=== PATIENT | female | born 1965 | race Caucasian/White ===

== ENCOUNTER 2017-06-02 14:04 | Emergency (ER) | payer OTHER, SELFPAY ==
[2017-06-02 15:36] VITALS: BP 173/108; PULSE 65; RESP 18; TEMP 35.9; O2SAT 95; BMI 32.1
--- NOTE | 2017-06-02 15:45 | HMH.EDUTC ---
[facility] [place] Disposition Clinical Impression: Acute bronchitis Qualifiers: Bronchitis organism: other organism Qualified Code(s): J20.8 - Acute bronchitis due to other specified organisms Disposition: Home, Self-Care Condition on Discharge: Good Additional Instructions: inCrease fluids Tylenol or ibuprofen as needed for pain or fever Patient is diabetic we will hold steroids for now if symptoms continue follow-up with primary care If symptoms worsen or do not improve return or be seen in the ER Prescriptions: Azithromycin [Zithromax 250mg tab] 250 mg PO DIRECTED #6 tab Time of Disposition: 15:51 Medical Decision Making Vital Signs: 06/02/17 15:36 Temperature 96.6 F L Temperature Source Temporal Artery Scan Pulse Rate [Brachial] 65 Respiratory Rate 18 Blood Pressure [Right Arm] 173/108 Blood Pressure Mean [Right Arm] 129 Blood Pressure Source [Right Arm] Automatic Cuff Blood Pressure Position [Right Arm] Sitting 02 Sat by Pulse Oximetry 95 Oxygen Delivery Method Room Air - Colin Inquiry Pt receiving controlled substance: No [facility] HPI - General Chief complaint: Shortness of Breath/Dyspnea Stated complaint: congested Time Seen by Provider: 06/02/17 15:45 Mode of Arrival: Ambulatory Source of Information: Patient Limitations: No Limitations Description of Symptoms (Recalled from Triage Doc. by RN): FLU LAST MOGHT. STILL HAS CONGESTON AND COUGH WITH EARS POPPING. BP IS ELEVATED TODAY AND PT STATES SHE JUST DIDNT TAKE HER MEDS HEENT Symptoms (Recalled from RN notes): Yes Resp Symptoms (Recalled from RN notes): Yes Skin Symptoms (Recalled from RN notes): No MS Symptoms (Recalled from RN notes): No Functional Status (Recalled from RN notes): NA - History of Present Illness Provider Complaint: 51-year-old female presents today for coughing, chest congestion, and hoarseness. Patient states last month she was diagnosed with the flu and since then has had increasing congestion and feels like she might have pneumonia. - Related Data Home Medications Medication Instructions Recorded Confirmed levothyroxine 25 mcg capsule 25 mcg PO ONCE cap 05/07/17 lisinopril 20 1 tab PO BID 05/07/17 mg-hydrochlorothiazide 12.5 mg tablet metformin 1,000 mg tablet 1,000 mg PO ONCE tab 05/07/17 Previous Rx's Medication Instructions Recorded Azithromycin [Zithromax 250mg 250 mg PO DIRECTED #6 tab 06/02/17 tab] Allergies Allergy/AdvReac Type Severity Reaction Status Date / Time No Known Allergies Allergy Unverified 05/07/17 16:45 - Worker's Comp Is this a Worker's Comp case?: No [facility] History I have reviewed the patient's past medical history: Yes Medical History: Reports:: Diabetes Mellitus Type 2, Hypertension Other Medical History: Reports: Hypothyroidism Other Surgeries: Yes: Tubal Ligation Comment: Hemroidectomy - Social History Smoking Status: Current every day smoker Tobacco Type: cigarettes # Packs/Day (cigarettes): 1 Alcohol Intake: never - Psychiatric History Expresses thoughts of harming self/others: None Suicide Plan Description: No Plan Family Hx:: Heart Attack, Diabetes, Hypertension ROS Obtained: Yes All systems reviewed & no additional complaints - Constitutional Constitutional: Reports system reviewed and no additional complaints, except as docu, Denies chills, Denies fever(s), Reports weakness - Eyes Eyes: Reports system reviewed and no additional complaints, except as docu - ENT Ears, Nose, Mouth, and Throat: Reports system reviewed and no additional complaints, except as docu, Reports nasal congestion - Cardiovascular Cardiovascular: Reports system reviewed and no additional complaints, except as docu - Respiratory Respiratory: Yes system reviewed and no additional complaints, except as docu, Yes as per HPI, Yes change in phlegm color, Yes cough - Gastrointestinal Gastrointestingal: Reports: system reviewed and no additional complaints, ex
--- NOTE | 2017-06-02 15:48 | ED_ITS ---
[facility] [place] Clinical Impression: Acute bronchitis Qualifiers: Bronchitis organism: other organism Qualified Code(s): J20.8 - Acute bronchitis due to other specified organisms Disposition: Home, Self-Care Condition on Discharge: Good Additional Instructions: inCrease fluids Tylenol or ibuprofen as needed for pain or fever Patient is diabetic we will hold steroids for now if symptoms continue follow- up with primary care If symptoms worsen or do not improve return or be seen in the ER Prescriptions: Azithromycin [Zithromax 250mg tab] 250 mg PO DIRECTED #6 tab Time of Disposition: 15:51 Medical Decision Making Vital Signs: 06/02/17 15:36 Temperature 96.6 F L Temperature Source Temporal Artery Scan Pulse Rate [Brachial] 65 Respiratory Rate 18 Blood Pressure [Right Arm] 173/108 Blood Pressure Mean [Right Arm] 129 Blood Pressure Source [Right Arm] Automatic Cuff Blood Pressure Position [Right Arm] Sitting 02 Sat by Pulse Oximetry 95 Oxygen Delivery Method Room Air - Colin Inquiry Pt receiving controlled substance: No [facility] [place] HPI - General Chief complaint: Shortness of Breath/Dyspnea Stated complaint: congested Time Seen by Provider: 06/02/17 15:45 Mode of Arrival: Ambulatory Source of Information: Patient Limitations: No Limitations Description of Symptoms (Recalled from Triage Doc. by RN): FLU LAST MOGHT. STILL HAS CONGESTON AND COUGH WITH EARS POPPING. BP IS ELEVATED TODAY AND PT STATES SHE JUST DIDNT TAKE HER MEDS HEENT Symptoms (Recalled from RN notes): Yes Resp Symptoms (Recalled from RN notes): Yes Skin Symptoms (Recalled from RN notes): No MS Symptoms (Recalled from RN notes): No Functional Status (Recalled from RN notes): NA - History of Present Illness Provider Complaint: 51-year-old female presents today for coughing, chest congestion, and hoarseness. Patient states last month she was diagnosed with the flu and since then has had increasing congestion and feels like she might have pneumonia. - Related Data Home Medications Medication Instructions Recorded Confirmed levothyroxine 25 mcg capsule 25 mcg PO ONCE cap 05/07/17 lisinopril 20 1 tab PO BID 05/07/17 mg-hydrochlorothiazide 12.5 mg tablet metformin 1,000 mg tablet 1,000 mg PO ONCE tab 05/07/17 Previous Rx's Medication Instructions Recorded Azithromycin [Zithromax 250mg 250 mg PO DIRECTED #6 tab 06/02/17 tab] Allergies Allergy/AdvReac Type Severity Reaction Status Date / Time No Known Allergies Allergy Unverified 05/07/17 16:45 - Worker's Comp Is this a Worker's Comp case?: No [facility] History I have reviewed the patient's past medical history: Yes Medical History: Reports:: Diabetes Mellitus Type 2, Hypertension Other Medical History: Reports: Hypothyroidism Other Surgeries: Yes: Tubal Ligation Comment: Hemroidectomy - Social History Smoking Status: Current every day smoker Tobacco Type: cigarettes # Packs/Day (cigarettes): 1 Alcohol Intake: never - Psychiatric History Expresses thoughts of harming self/others: None Suicide Plan Description: No Plan Family Hx:: Heart Attack, Diabetes, Hypertension ROS Obtained: Yes All systems reviewed & no additional complaints - Constitutional Constitutional: Reports system reviewed and no additio
[2017-06-02 16:09] VITALS: BP 173/108; PULSE 65; RESP 18; TEMP 35.9; O2SAT 95
[2017-06-02 16:14] LABS: UTC Influenza A Antigen Negative (Negative); UTC Influenza B Antigen Negative (Negative)
== END 2017-06-02 16:11 | disposition home or self-care (01) ==
PROVIDERS: Emergency Provider Nurse Practitioner Family; Family Provider Family Medicine
DX: J20.8 Acute bronchitis due to other specified organisms (principal); I10 Essential (primary) hypertension; E11.9 Type 2 diabetes mellitus without complications; E03.9 Hypothyroidism, unspecified; F17.210 Nicotine dependence, cigarettes, uncomplicated
CPT/HCPCS: 87804; 99202

== ENCOUNTER 2018-01-14 13:07 | Observation (INO) ==
--- NOTE | 2018-01-14 13:48 | Emergency Department Note ---
ED Disposition Clinical Impression: Atrial fibrillation/flutter Disposition: Still a Patient Condition on Discharge: Fair Referrals: Elyse Calix MD [Primary Care Provider] - - Critical Care Critical Care Time: No Attestation: On 01/14/18, the high probability of a clinically significant, sudden or life threatening deterioration of the following system(s) required my full and direct attention, intervention and personal management. The time I documented below is in addition to time spent performing reported procedures but includes the following listed in this critical care notation. Total Critical Care Time: 40 Vital system(s) involved:: Circulatory Failure My critical care processes included: Assessment & monitoring of V/S, Initial and Re-exams, Data Review/Interpretation, Coordinating Care, Medication Orders and management, Documentation Medical Decision Making - Colin Inquiry Pt receiving controlled substance: No Vital Signs: 01/14/18 13:08 01/14/18 13:31 01/14/18 14:04 Temperature 98.0 F 98.2 F 98.0 F Temperature Source Temporal Artery Scan Temporal Artery Scan Temporal Artery Scan Pulse Rate [Right Brachial] 231 H 231 H 135 H Respiratory Rate 22 26 H 18 Blood Pressure [Right Arm] 169/104 H 133/102 H 155/96 H Blood Pressure Mean [Right Arm] 125 112 115 Blood Pressure Source [Right Arm] Automatic Cuff Automatic Cuff Automatic Cuff Blood Pressure Position [Right Arm] Sitting Sitting Sitting 02 Sat by Pulse Oximetry 99 99 100 Oxygen Delivery Method Nasal Cannula Room Air Room Air Oxygen Flow Rate (LPM) 01/14/18 14:11 01/14/18 14:42 01/14/18 15:31 Temperature Temperature Source Pulse Rate [Right Brachial] 128 H 124 H 109 H Respiratory Rate 18 Blood Pressure [Right Arm] 137/79 122/66 Blood Pressure Mean [Right Arm] 98 84 Blood Pressure Source [Right Arm] Automatic Cuff Blood Pressure Position [Right Arm] Sitting 02 Sat by Pulse Oximetry 99 100 100 Oxygen Delivery Method Nasal Cannula Nasal Cannula Nasal Cannula Oxygen Flow Rate (LPM) 2 2 2 01/14/18 15:54 01/14/18 16:11 01/14/18 17:02 Temperature Temperature Source Pulse Rate [Right Brachial] 117 H 129 H 112 H Respiratory Rate 16 Blood Pressure [Right Arm] 140/95 H 146/87 H 144/94 H Blood Pressure Mean [Right Arm] 110 106 110 Blood Pressure Source [Right Arm] Automatic Cuff Automatic Cuff Automatic Cuff Blood Pressure Position [Right Arm] Sitting Sitting Sitting 02 Sat by Pulse Oximetry 100 93 L 100 Oxygen Delivery Method Nasal Cannula Room Air Nasal Cannula Oxygen Flow Rate (LPM) 2 2 01/14/18 17:39 Temperature Temperature Source Pulse Rate [Right Brachial] 106 H Respiratory Rate Blood Pressure [Right Arm] 154/95 H Blood Pressure Mean [Right Arm] 114 Blood Pressure Source [Right Arm] Automatic Cuff Blood Pressure Position [Right Arm] Sitting 02 Sat by Pulse Oximetry 100 Oxygen Delivery Method Nasal Cannula Oxygen Flow Rate (LPM) 2 - Lab Data Lab Results 01/14/18 13:33: WBC 11.1 H, RBC 4.68, Hgb 14.9, Hct 44.9, MCV 96.0, MCH 31.9 H, MCHC 33.3, RDW 14.3, Plt Count 236, MPV 8.5, Neut % (Auto) 54.1, Lymph % (Auto) 40.6, Haines % (Auto) 3.9, Eos % (Auto) 1.0, Baso % (Auto) 0.4, Neut # (Auto) 6.0, Lymph # (Auto) 4.5, Haines # (Auto) 0.4, Eos # (Auto) 0.1, Baso # (Auto) 0.1 01/14/18 13:33: Sodium 137, Potassium 3.3 L, Chloride 101, Carbon Dioxide 24, Anion Gap 15.3 H, BUN 12, Creatinine 0.80, Estimated Creat Clear 114, Estimated GFR 76, Est GFR ( Amer) 92, Glucose 210 H, Calcium 8.5, Troponin I < 0.02, TSH 15.92 H, Free T4 Index 3.4 L, Thyroxine (T4) 9.6, T3 Uptake 35 01/14/18 13:33: B-Natriuretic Peptide 122 H Result diagrams: 01/14/18 13:33 01/14/18 13:33 Orders (Tests/Meds): ED MEDICATIONS Generic Name Dose Route Start Last Admin Trade Name Freq PRN Reason Stop Dose Admin Enoxaparin Sodium 90 mg 01/14/18 21:00 01/14/18 17:39 Lovenox 120mg/0.8ml Syringe SQ 02/13/18 20:59 90 mg BID GRACE Administration Diltiazem HCl 100 mg/ Sodium 100 mls @ 5 mls/hr 01/14/18 14:03 01/14/18 14:00 Chloride IV 02/13/18 14:02 5 mls/hr .Q20H GRACE Administration Protocol Ceftriaxone Sodium 1 gm/ 50 mls @ 100 mls/hr 01/14/18 16:45 01/14/18 16:50 Sodium Chloride IV 01/28/18 16:44 100 mls/hr Q24H GRACE Administration Protocol Azithromycin 500 mg/ Sodium 250 mls @ 250 mls/hr 01/14/18 16:45 01/14/18 17:39 Chloride IV 01/28/18 16:44 250 mls/hr Q24H GRACE Administration Protocol Levothyroxine Sodium 25 mcg 01/15/18 16:43 Synthroid 25mcg (0.025mg) Tablet PO 01/15/18 16:44 ONCE ONE Discontinued Medications Generic Name Dose Route Start Last Admin Trade Name Freq PRN Reason Stop Dose Admin Adenosine 6 mg 01/14/18 14:13 01/14/18 13:50 Adenosine 6mg/2ml Vial IV 01/14/18 14:14 6 mg ONCE ONE Administration Diltiazem HCl 10 mg 01/14/18 13:48 01/14/18 13:52 Cardizem 25mg/5ml Vial IV 01/14/18 13:49 10 mg ONCE ONE Administration Diltiazem HCl 10 mg 01/14/18 14:11 01/14/18 14:13 Cardizem 25mg/5ml Vial IV 01/14/18 14:12 10 mg ONCE ONE Administration Iopamidol 75 ml 01/14/18 18:48 01/14/18 18:49 [id number]; 75ml Vial IV 01/14/18 18:49 75 ml ONCE ONE Administration Protocol Potassium Chloride 40 meq 01/14/18 16:42 01/14/18 16:50 Klor-Con 20meq Tablet PO 01/14/18 16:43 40 meq ONCE ONE Administration Sodium Chloride 50 ml 01/14/18 18:48 01/14/18 18:50 Rad-Ns 50ml Vial IV 01/14/18 18:49 50 ml ONCE ONE Administration ORDERS Category Date Time Status CT angio chest Stat Cat Scan 01/14/18 15:58 Taken Lactic Acid Stat Lab 01/14/18 15:25 Ordered Blood Culture Stat Micro 01/14/18 15:25 Ordered - Radiology Data #1 Image(s): Chest Image Reviewed: Yes I have reviewed radiologist's interpretation Right lower lobe atelectasis or infiltrate - CT Data CT Scan: Chest Time Received: 19:[address] Reviewed: Yes: I have viewed the radiologist's interpretation Findings Narrative: CT scan interpreted by ad radiologist. Faxed report received and reviewed: No acute intrathoracic abnormality detected, specifically, no evidence of pulmonary embolus. Lungs normal, no consolidation. - ECG Data Tracing #1 EKG #2 interpreted by Juvenal Ashton MD: Rhythm: Atrial fibrillation with rapid ventricular response Rate: 145 [place]: normal Ectopy: none Conduction: normal ST Segment Changes: Nonspecific T Wave Changes: Nonspecific Q Waves: none Tracing #2 EKG #2 interpreted by Juvenal Ashton MD: Rhythm: Atrial fibrillation with rapid ventricular response Rate: 145 [place]: normal Ectopy: none Conduction: normal ST Segment Changes: Nonspecific T Wave Changes: Nonspecific Q Waves: none - Physician Consults Physician Consulted: Von Time: 16:03 Reason -: Cardiology Eval/Care Comment/Response: Continue diltiazem drip. CT angiogram to rule out pulmonary embolism. Start on Lovenox. He will consult. Additional Consult: Angela Time: 16:41 Reason -: Admission Comment/Response: Agrees to admit the patient to the hospital. We discussed the patient's clinical information, including history, exam, laboratory and radiology results and ED course. Per hospital procedure, I will write temporary bridge inpatient orders on the patient. Specific orders requested by the admitting physician: Continue diltiazem drip. Thyroid replacement. Antibiotics. Medical Decision Narrative: Discontinuing antibiotics since there is no infiltrate on CT scan of the chest General Adult HPI - General Stated complaint: sinus pressure, sore throat, dizzy, racing heart Time Seen by Provider: 01/14/18 13:45 - History of Present Illness HPI narrative: Has been having problems with sinus pressure, sore throat. Using nasal spray and antihistamines. Taking ibuprofen. 20 minutes prior to arrival developed a sensation of a racing heart. States that she had some chest pressure earlier in the day that lasted about 30 minutes, not associated with tachycardia. No hist ory of any cardiac problems. Recent gallbladder surgery, took 2 Percocet today. No syncope. No dyspnea. She is on thyroid replacement. Did not take thyroid medication this week. - Related Data Home Medications Medication Instructions Recorded Confirmed levothyroxine 25 mcg capsule 25 mcg PO ONCE cap 05/07/17 01/14/18 lisinopril 20 1 tab PO BID 05/07/17 01/14/18 mg-hydrochlorothiazide 12.5 mg tablet metformin 1,000 mg tablet 1,000 mg PO ONCE tab 05/07/17 01/14/18 Allergies Allergy/AdvReac Type Severity Reaction Status Date / Time No Known Allergies Allergy Verified 10/21/17 20:23 [facility] History I have reviewed the patient's past medical history: Yes Medical History: Reports:: Diabetes Mellitus Type 2, Hypertension Denies:: Cancer, Internal Pacemaker, MRSA Other Medical History: Reports: Hypothyroidism Other Surgeries: Yes: Tubal Ligation. No: Pacemaker Amputation: No Fractures: No Comment: Hemroidectomy - Social History Educational Level: Completed High School Smoking Status: Unknown if ever smoked Tobacco Type: cigarettes # Packs/Day (cigarettes): 1 Alcohol Intake: never - Psychiatric History Expresses thoughts of harming self/others: None Suicide Plan Description: No Plan Family Hx:: Heart Attack, Diabetes, Hypertension ROS Obtained: Yes All systems reviewed & no additional complaints - ENT Ears, Nose, Mouth, and Throat: Reports nasal congestion, Reports nasal discharge, Reports post nasal drip, Reports sore throat - Cardiovascular Cardiovascular: Reports chest pain, Reports rapid heart rate - Respiratory Respiratory: No cough, No dyspnea, No coughing up blood - Gastrointestinal Gastrointestingal: Denies: abdominal pain, vomiting Physical Exam - General General appearance: alert, anxious - Head Head exam: atraumatic, normocephalic, normal inspection - Eye Eye exam: Present: normal appearance, PERRL, EOMI - ENT ENT exam: Present: mucous membranes moist - Neck Neck exam: Present: normal inspection, full ROM, trachea midline. Absent: meningismus, lymphadenopathy - Chest Chest inspection: Present: normal inspection, symmetric chest wall rise. Absent: tenderness - Respiratory Respiratory exam: Present: normal lung sounds bilaterally. Absent: respiratory distress - Cardiovascular Cardiovascular exam: Present: tachycardia, normal heart sounds. Absent: JVD - Abdominal Exam Abdominal exam: Present: soft, normal bowel sounds. Absent: distention, tenderness, guarding - Extremities Exam Extremities exam: Present: normal inspection, full ROM, normal capillary refill. Absent: calf tenderness - Neurological Exam Neurological exam: Present: alert, oriented X3 - Psychiatric Psychiatric exam: Present: normal affect, normal mood - Skin Skin exam: Present: warm, dry, intact, normal color Procedures - Miscellaneous Procedure Procedure Performed: Adenosine 6 mg given intravenously. Rapid narrow complex tachycardia converted initially to sinus rhythm but fairly quickly went into atrial fibrillation with rapid ventricular response. Given this scenario, initial rhythm was likely atrial flutter. Cardizem bolus and drip started.
[2018-01-14 14:48] LABS: Basophils # 0.1 K/mm3 (0-0.2); Basophils % 0.4 % (0.1-2.0); Eosinophils # 0.1 K/mm3 (0.0-0.4); Hematocrit 44.9 % (37.0-47.0); Hemoglobin 14.9 g/dL (12.2-16.2); Lymphocytes # 4.5 K/mm3 (0.7-4.5); Lymphocytes % 40.6 K/mm3 (10-50); Mean Corpuscular HGB Conc 33.3 g/dL (31.8-35.4); Mean Corpuscular Hemoglobin 31.9 pg (27.0-31.2); Mean Platelet Volume 8.5 fl (7.4-10.4); Monocytes # 0.4 K/mm3 (0.1-1.0); Monocytes % 3.9 % (1.7-9.3); Neutrophils % 54.1 % (37.0-80.0); Platelet Count 236 K/mm3 (142-424); Red Blood Count 4.68 M/mm3 (4.20-5.40); Red Cell Distribution Width 14.3 % (11.5-17.5); White Blood Count 11.1 K/mm3 (4.8-10.8)
[2018-01-14 15:42] LABS: Anion Gap 15.3 mEq/L (5-15); Blood Urea Nitrogen 12 mg/dL (7-18); Calcium 8.5 mg/dL (8.5-10.1); Carbon Dioxide 24 mmol/L (21.0-32.0); Chloride 101 mmol/L (98-107); Free Thyroxine Index 3.4 ug/dL (5.93-13.13); Glucose 210 mg/dL (74-106); Potassium 3.3 mmoL/L (3.5-5.1); Sodium 137 mmol/L (136-145); T4 (Thyroxine) 9.6 ug/dl (4.7-13.3); Thyroid Stimulating Hormone 15.92 uIU/ml (0.358-3.740); Triiodothryronine (T3) Uptake 35 % (31-39)
--- NOTE | 2018-01-15 07:50 | Pharmacy Consult Notes ---
[facility] Pharmacy VTE Monitoring - Patient Demographics Admission date: 01/14/18 Report Date: 01/15/18 Time: 07:50 Allergies/Adverse Reactions: Patient Allergies No Known Allergies Allergy (Verified 10/21/17 20:23) Height: 1.7 m Weight: 89.584 kg Patient Problems: Current Active Problems Atrial fibrillation/flutter (Acute) - VTE Risk Labs: VTE Related Lab Results Hgb 14.9 g/dL (12.2-16.2) 01/14/18 13:33 Hct 44.9 % (37.0-47.0) 01/14/18 13:33 Plt Count 236 K/mm3 (142-424) 01/14/18 13:33 BUN 12 mg/dL (7-18) 01/14/18 13:33 Creatinine 0.80 mg/dL (0.55-1.02) 01/14/18 13:33 Estimated Creat Clear 114 mL/min (0-300) 01/14/18 13:33 Was VTE Risk Assessment Performed: Yes VTE Score: 2 VTE Risk Level: Very Low Risk - Prophylaxis VTE Prophylaxis Ordered?: Yes Types of VTE Prophylaxis: TEDS Knee High Location of Applied Device: Bilateral Lower Extremeties - VTE Diagnosis Confirmed Treatment or plan recommended: Continue Current Treatment
--- NOTE | 2018-01-15 08:55 | Consult Report ---
History of Present Illness Consult date: 01/15/18 Requesting physician: Chucky Elizabeth Consult reason: atrial fibrillation Chief complaint: A. flutter/fibrillation Additional Medical History:: 1. Hypertension, treated for many years 2. Type 2 diabetes mellitus, treated for about 2 years 3. Tobacco use, 1 pack/day for 20 years 4. Hypothyroidism, on supplement 5. Status post cholecystectomy, 01/12/2018 6. Strong family history of coronary artery disease in her mother with coronary bypass in her 30's History of present illness: 52-year-old female with history of hypertension, tobacco use and h ypothyroidism recently had cholecystectomy earlier this week. Patient presented to the emergency department yesterday for acute onset of palpitations with a rapid heart rate and lightheadedness. Symptoms started about 20 minutes prior to arrival. EKG in the emergency department showed a rapid SVT at a rate of about 230 bpm. Patient was given adenosine with subsequent brief cardioversion to sinus rhythm prior to onset of atrial fibrillation with a rapid ventricular response. Patient given 2 boluses of IV Cardizem with subsequent re-conversion to sinus rhythm which has been maintained throughout the night. Patient has resting heart rate in the 60s bpm and sinus on telemetry the same. Patient denies any previous cardiac history. She denies having any recent cardiac workup prior to recent surgery. She has been off of all of her home medications since Friday in preparation for her surgery on this past Friday. Cardiology consulted for evaluation recommendations. Troponins have returned normal x2. Patient is noted to be hypothyroid with a TSH of 14. [facility] History Medical History: Reports:: Diabetes Mellitus Type 2, Hypertension Denies:: Cancer, Internal Pacemaker, MRSA Other Medical History: Reports: Arthritis, Hypothyroidism Other Surgeries: Yes: Cholecystectomy, Tubal Ligation. No: Pacemaker Amputation: No Fractures: No - *Social History Educational Level: Attended High School Smoking Status: Current every day smoker Tobacco Type: cigarettes # Packs/Day (cigarettes): 1 Alcohol Intake: never Occupational Status: employed Housing: house Household Members: spouse - Psychiatric History Expresses thoughts of harming self/others: None Suicide Plan Description: No Plan *Family Hx:: Heart Attack, Diabetes, Hypertension Meds Home Medications Medication Instructions Recorded Confirmed Type lisinopril 20 1 tab PO BID 05/07/17 01/14/18 History mg-hydrochlorothiazide 12.5 mg tablet metformin 1,000 mg tablet 500 mg PO BID tab 05/07/17 01/15/18 History Hydrocod/Acet 5/325 mg [[place] 1 tab PO Q4-6H PRN 01/14/18 01/14/18 History 5/325mg tablet] Aspirin [Aspirin 81mg EC Tab] 81 mg PO DAILY 01/15/18 01/15/18 History Cyclobenzaprine HCl 10 mg PO HS 01/15/18 01/15/18 History [Cyclobenzaprine 10mg Tab] Fenofibrate Nanocrystallized 145 mg PO DAILY 01/15/18 01/15/18 History [Fenofibrate] Ibuprofen [Ibuprofen 800mg 800 mg PO Q8HP PRN 01/15/18 01/15/18 History Tablet] Levocetirizine Dihydrochloride 5 mg PO HS 01/15/18 01/15/18 History Levothyroxine 125mcg (0.125mg) Tab 125 mcg PO DAILY 01/15/18 01/15/18 History Losartan/Hydrochlorothiazide 1 each PO DAILY 01/15/18 01/15/18 History [Losartan-Hctz 50-12.5 mg Tab] [place]-3 Fatty Acids/Fish Oil 2 each PO DAILY 01/15/18 01/15/18 History [[place] 3 1,000 mg Softgel] Vitamin D3 1,000 Unit Cap 1,000 units PO DAILY 01/15/18 01/15/18 History Allergies Allergy/AdvReac Type Severity Reaction Status Date / Time No Known Allergies Allergy Verified 10/21/17 20:23 Review of Systems - *Cardiovascular Denies chest pain, Denies shortness of breath with activity - *Respiratory Reports cough, Denies shortness of breath with activity - *Gastrointestinal Reports abdominal pain - *Genitourinary Denies blood in urine - *Neurologic Reports dizziness Exam Vital signs and Labs for Last 24 Hours: Temp Pulse Resp BP Pulse Ox 98.1 F 56 L 22 138/84 97 01/15/18 04:00 01/15/18 08:00 01/15/18 08:00 01/15/18 08:00 01/15/18 08:00 Laboratory Results - last 24 hr 01/14/18 13:33: WBC 11.1 H, RBC 4.68, Hgb 14.9, Hct 44.9, MCV 96.0, MCH 31.9 H, MCHC 33.3, RDW 14.3, Plt Count 236, MPV 8.5, Neut % (Auto) 54.1, Lymph % (Auto) 40.6, Steele % (Auto) 3.9, Eos % (Auto) 1.0, Baso % (Auto) 0.4, Neut # (Auto) 6.0, Lymph # (Auto) 4.5, Steele # (Auto) 0.4, Eos # (Auto) 0.1, Baso # (Auto) 0.1 01/14/18 13:33: Sodium 137, Potassium 3.3 L, Chloride 101, Carbon Dioxide 24, Anion Gap 15.3 H, BUN 12, Creatinine 0.80, Estimated Creat Clear 114, Estimated GFR 76, Est GFR ( Amer) 92, Glucose 210 H, Calcium 8.5, Troponin I < 0.02, TSH 15.92 H, Free T4 Index 3.4 L, Thyroxine (T4) 9.6, T3 Uptake 35 01/14/18 13:33: B-Natriuretic Peptide 122 H 01/14/18 19:10: Lactate 0.7 01/14/18 20:32: POC Glucose 176 H 01/14/18 22:30: Troponin I < 0.02 01/15/18 01:40: Troponin I < 0.02 01/15/18 06:10: POC Glucose 170 H I & O for Last 24 hours: Intake & Output 01/12/18 01/13/18 01/14/18 01/15/18 11:59 11:59 11:59 11:59 Output Total 600 / 600 Balance -600 / -600 Weight 197 lb 8 oz - *Routine Neck Exam Present: supple. Absent: JVD, carotid bruit - *Routine Respiratory Exam Present: CTA bilaterally, rhonchi. Absent: accessory muscle use, rales, wheezes - *Routine Cardiovascular Exam Present: RRR. Absent: murmur, gallop, rubs - *Routine Abdominal Exam Present: soft, tenderness. Absent: distended, guarding - *Routine Extremities Exam Absent: edema, calf tenderness - *Routine Neurological Exam Present: alert, oriented X3, moving all extremities Assessment and Plan (1) Atrial fibrillation/flutter Current visit: Yes Status: Acute Category: Medical (2) Acute bronchitis Current visit: No Status: Acute Qualifiers: Bronchitis organism: other organism Qualified Code(s): J20.8 - Acute bronchitis due to other specified organisms Category: Medical Code(s): J20.9 - Acute bronchitis, unspecified (3) Hypothyroidism Current visit: Yes Status: Acute Category: Medical Code(s): E03.9 - Hypothyroidism, unspecified (4) History of hypertension Current visit: Yes Status: Acute Category: Medical Code(s): Z86.79 - Personal history of other diseases of the circulatory system (5) Tobacco abuse Current visit: Yes Status: Acute Category: Medical Code(s): Z72.0 - Tobacco use - Assessment and plan all Dx Assessment and Plan for all problems:: 1. Obtain echocardiogram to evaluate left ventricular size, left atrial size and left ventricular ejection fraction. 2. Further recommendations pending echo results with consideration for daily, low-dose beta-gabino or calcium channel gabino. Patient may need referral for EP evaluation in the future if unable to tolerate calcium channel gabino or beta-gabino. 3. Pt received lovenox overnight. Her CHADS-VASC score is 3 (HTN, DM, Female). Recommend starting Xarelto 20 mg daily for documented A. fib. Discussed with Dr. DOROTHY Bill.
--- NOTE | 2018-01-15 09:50 | History & Physical Report ---
*Admission Date: 01/14/18 *Chief complaint: heart racing, cough, congestion *History of present illness: 52-year-old female with history of hypertension, tobacco use and hypothyroidism recently had cholecystectomy earlier this week. Patient presented to the emergency department yesterday for acute onset of palpitations with a rapid heart rate and lightheadedness. Symptoms started about 20 minutes prior to arrival. EKG in the emergency department showed a rapid SVT at a rate of about 230 bpm. Patient was given adenosine with subsequent brief cardioversion to sinus rhythm prior to onset of atrial fibrillation with a rapid ventricular response. Patient given 2 boluses of IV Cardizem with subsequent re-conversion to sinus rhythm which has been maintained throughout the night. Patient has resting heart rate in the 60s bpm and sinus on telemetry the same. Patient denies any previous cardiac history. She denies having any recent cardiac workup prior to recent surgery. She has been off of all of her home medications since Friday in preparation for her surgery on this past Friday. Cardiology consulted for evaluation recommendations. Troponins have returned normal x2. Patient is noted to be hypothyroid with a TSH of 15. Above per Cardiology PARudy Patient further reports sore throat, sinus pressure and ear fullness over the last 1-2 weeks. She has been taking ibuprofen and flonase with no improvement of symptoms. She has had increased cough the last few days, minimal shortness of breath. Strong family cardiac history- Mom has bypass in her 30's. She has not had any chest pain or palpitations through the night. [facility] History I have reviewed the patient's past medical history: Yes Medical History: Reports:: Diabetes Mellitus Type 2, Hypertension Denies:: Cancer, Internal Pacemaker, MRSA Other Medical History: Reports: Arthritis, Hypothyroidism Other Surgeries: Yes: Cholecystectomy, Tubal Ligation. No: Pacemaker Amputation: No Fractures: No - *Social History Educational Level: Attended High School Smoking Status: Current every day smoker Tobacco Type: cigarettes # Packs/Day (cigarettes): 1 Alcohol Intake: never Occupational Status: employed Housing: house Household Members: spouse - Psychiatric History Expresses thoughts of harming self/others: None Suicide Plan Description: No Plan *Family Hx:: Heart Attack, Diabetes, Hypertension Review of Systems - Review of Systems Review of systems:: pertinent systems reviewed and negative unless documented below - Constitutional Reports malaise - ENT Reports ear pain, Reports nasal congestion, Reports nasal discharge, Reports sinus pressure, Reports sore throat - *Cardiovascular Reports rapid, pounding, or irregular heartbeat - *Respiratory Reports cough, Reports shortness of breath - *Neurologic Reports dizziness Meds Home Medications Medication Instructions Recorded Confirmed Type lisinopril 20 1 tab PO BID 05/07/17 01/14/18 History mg-hydrochlorothiazide 12.5 mg tablet metformin 1,000 mg tablet 500 mg PO BID tab 05/07/17 01/15/18 History Hydrocod/Acet 5/325 mg [[place] 1 tab PO Q4-6H PRN 01/14/18 01/14/18 History 5/325mg tablet] Aspirin [Aspirin 81mg EC Tab] 81 mg PO DAILY 01/15/18 01/15/18 History Cyclobenzaprine HCl 10 mg PO HS 01/15/18 01/15/18 History [Cyclobenzaprine 10mg Tab] Fenofibrate Nanocrystallized 145 mg PO DAILY 01/15/18 01/15/18 History [Fenofibrate] Ibuprofen [Ibuprofen 800mg 800 mg PO Q8HP PRN 01/15/18 01/15/18 History Tablet] Levocetirizine Dihydrochloride 5 mg PO HS 01/15/18 01/15/18 History Levothyroxine 125mcg (0.125mg) Tab 125 mcg PO DAILY 01/15/18 01/15/18 History Losartan/Hydrochlorothiazide 1 each PO DAILY 01/15/18 01/15/18 History [Losartan-Hctz 50-12.5 mg Tab] [place]-3 Fatty Acids/Fish Oil 2 each PO DAILY 01/15/18 01/15/18 History [[place] 3 1,000 mg Softgel] Vitamin D3 1,000 Unit Cap 1,000 units PO DAILY 01/15/18 01/15/18 History Allergies Allergy/AdvReac Type Severity Reaction Status Date / Time No Known Allergies Allergy Verified 10/21/17 20:23 Exam Vital signs and Labs for Last 24 Hours: Temp Pulse Resp BP Pulse Ox 98.1 F 56 L 22 138/84 97 01/15/18 04:00 01/15/18 08:00 01/15/18 08:00 01/15/18 08:00 01/15/18 08:00 Laboratory Results - last 24 hr 01/14/18 13:33: WBC 11.1 H, RBC 4.68, Hgb 14.9, Hct 44.9, MCV 96.0, MCH 31.9 H, MCHC 33.3, RDW 14.3, Plt Count 236, MPV 8.5, Neut % (Auto) 54.1, Lymph % (Auto) 40.6, [place] % (Auto) 3.9, Eos % (Auto) 1.0, Baso % (Auto) 0.4, Neut # (Auto) 6.0, Lymph # (Auto) 4.5, [place] # (Auto) 0.4, Eos # (Auto) 0.1, Baso # (Auto) 0.1 01/14/18 13:33: Sodium 137, Potassium 3.3 L, Chloride 101, Carbon Dioxide 24, Anion Gap 15.3 H, BUN 12, Creatinine 0.80, Estimated Creat Clear 114, Estimated GFR 76, Est GFR ( Amer) 92, Glucose 210 H, Calcium 8.5, Troponin I < 0.02, TSH 15.92 H, Free T4 Index 3.4 L, Thyroxine (T4) 9.6, T3 Uptake 35 01/14/18 13:33: B-Natriuretic Peptide 122 H 01/14/18 19:10: Lactate 0.7 01/14/18 20:32: POC Glucose 176 H 01/14/18 22:30: Troponin I < 0.02 01/15/18 01:40: Troponin I < 0.02 01/15/18 06:10: POC Glucose 170 H I & O for Last 24 hours: Intake & Output 01/12/18 01/13/18 01/14/18 01/15/18 11:59 11:59 11:59 11:59 Output Total 600 / 600 Balance -600 / -600 Weight 197 lb 8 oz Narrative: Alert and oriented x3. No neuro deficits. Rate and rhythm regular. No LE edema. No JVD or cervical LAD. ENT exam unremarkable. Lung sounds with coarse crackles RLL and scattered faint wheezing on right side. Abdomen soft, mild tender, laproscopic incisions with steri-strips, minimal bruising, no drainage, erythema or s/s infection. Skin, warm and dry, no rashes. Assessment and Plan (1) Atrial fibrillation/flutter Current visit: Yes Status: Acute Category: Medical (2) Acute bronchitis Current visit: No Status: Acute Qualifiers: Bronchitis organism: other organism Qualified Code(s): J20.8 - Acute bronchitis due to other specified organisms Category: Medical Code(s): J20.9 - Acute bronchitis, unspecified (3) Hypothyroidism Current visit: Yes Status: Acute Category: Medical Code(s): E03.9 - Hypot hyroidism, unspecified (4) History of hypertension Current visit: Yes Status: Acute Category: Medical Code(s): Z86.79 - Personal history of other diseases of the circulatory system (5) Tobacco abuse Current visit: Yes Status: Acute Category: Medical Code(s): Z72.0 - Tobacco use (6) History of cholecystectomy Current visit: Yes Status: Acute Category: Surgical Code(s): Z90.49 - Acquired absence of other specified parts of digestive tract - Assessment and plan all Dx Assessment and Plan for all problems:: She has remained in NSR rate 50-80 through the night. CTA chest negative for P E. Stop Lovenox. Obtain Echo. Cardiology consult note reviewed and appreciated. Start antibiotics for RLL pneumonia.
--- NOTE | 2018-01-15 12:22 | Cardiology Report ---
CA echo doppler complete PROCEDURE: INDICATIONS FOR THE TEST: Chest painX COPD Heart Murmur Tobacco Smoking Palpitations Fatigue Syncope Edema HypertensionXDiabetes Mellitus Rheumatic Fever SOB COLBERT Obesity Hyperlipidemia Family History HD Additional History AF,CP PATIENT INFORMATION HEIGHT: 67 WEIGHT:197 GENDER: Female B/P:122/66 2-D/M-MODE INTERPRETATION: 2-D MEASUREMENTS OBSERVED VALUES IN CMS Right Ventricular Dimension (RVDd) 2.0 Interventricular Septum (Thickness)(IVsd) .9 Left Ventricular Internal Dimensions(LVIDd) 5.4 Left Ventricular Posterior Wall (Thickness)(LVPWd) .9 Aortic Root 3.5 Aortic Cusp Separation 2.1 Left Atrial Dimensions (LAD) 2.4 2D 1. Left atrium is qualitatively mildly enlarged, left ventricle is normal size, there is no concentric left ventricular hypertrophy, visually estimated ejection fraction of 50% with no regional wall motion abnormality. 2. The right atrium and right ventricle are normal size and contractility. 3. The aortic valve is minimally thickened and fibrosed. 4. The mitral and tricuspid valvular grossly normal. 5. The pulmonic valve is poorly visualized. 6. No significant pericardial effusion noted. DOPPLER INTERROGATION: Doppler interrogation of the aortic, mitral and tricuspid valvular presence of mild mitral and tricuspid regurgitation tricuspid regurgitation jet velocity is inadequate for calculation of the right ventricular systolic pressure, grade 1 diastolic dysfunction seen without tissue Doppler left atrial pressure. CONCLUSION: 1. Mildly enlarged, normal left ventricular size, visually estimated ejection fraction 50% with no regional wall motion abnormality, grade 1 diastolic dysfunction seen without tissue Doppler evidence of raised left atrial pressure. 2. Mild mitral and tricuspid regurgitation 3. No significant pericardial effusion noted.
--- NOTE | 2018-01-15 15:18 | Discharge Summary ---
General - General Admission date:: 01/14/18 Discharge date: 01/15/18 HPI HPI: 52-year-old female with history of hypertension, tobacco use and hypothyroidism recently had cholecystectomy earlier this week. Patient presented to the emergency department yesterday for acute onset of palpitations with a rapid heart rate and lightheadedness. Symptoms started about 20 minutes prior to arrival. EKG in the emergency department showed a rapid SVT at a rate of about 230 bpm. Patient was given adenosine with subsequent brief cardioversion to sinus rhythm prior to onset of atrial fibrillation with a rapid ventricular response. Patient given 2 boluses of IV Cardizem with subsequent re-conversion to sinus rhythm which has been maintained throughout the night. Patient has resting heart rate in the 60s bpm and sinus on telemetry the same. Patient denies any previous cardiac history. She denies having any recent cardiac workup prior to recent surgery. She has been off of all of her home medications since Friday in preparation for her surgery on this past Friday. Cardiology consulted for evaluation recommendations. Troponins have returned normal x2. Patient is noted to be hypothyroid with a TSH of 15. Above per Cardiology Rudy RIVERA Patient further reports sore throat, sinus pressure and ear fullness over the last 1-2 weeks. She has been taking ibuprofen and flonase with no improvement of symptoms. She has had increased cough the last few days, minimal shortness of breath. Strong family cardiac history- Mom has bypass in her 30's. She has not had any chest pain or palpitations through the night. Hospital Course Hospital Course: Patient was admitted to step-down unit on cardizem gtt. She converted to NSR with rate 50-60 and gtt was discontinued. She was transitioned to oral cardizem and rate has remained controlled between 60-80. CXR showed pneumonia and she was given IV antibiotics and incentive spirometer. She was able to shower without significant shortness of breath. Xarelto was started for anticoagulation. Echo was obtained which was unremarkable. Patient is tolerating oral intake well and desires to go home. Discharge home on xarelto, cardizem, azithromycin and cefidnir. Advised to FU with PCP on Friday. FU with cardiology Rudy Murphy PA-C in one week. Objective Vital signs: Temp Pulse Resp BP Pulse Ox 98.3 F 67 16 148/76 H 97 01/15/18 11:40 01/15/18 11:40 01/15/18 11:40 01/15/18 11:40 01/15/18 11:40 Narrative: See H&P from earlier today Results Labs on day of discharge: Labs from last 24 hours 01/15/18 01/15/18 01/15/18 11:40 06:10 01:40 Sodium Potassium Chloride Carbon Dioxide Anion Gap BUN Creatinine Estimated Creat Clear Estimated GFR Est GFR ( Amer) Glucose POC Glucose 282 H 170 H Lactate Calcium Troponin I < 0.02 B-Natriuretic Peptide TSH Free T4 Index Thyroxine (T4) T3 Uptake 01/14/18 01/14/18 01/14/18 22:30 20:32 19:10 Sodium Potassium Chloride Carbon Dioxide Anion Gap BUN Creatinine Estimated Creat Clear Estimated GFR Est GFR ( Amer) Glucose POC Glucose 176 H Lactate 0.7 Calcium Troponin I < 0.02 B-Natriuretic Peptide TSH Free T4 Index Thyroxine (T4) T3 Uptake 01/14/18 01/14/18 13:33 13:33 Sodium 137 Potassium 3.3 L Chloride 101 Carbon Dioxide 24 Anion Gap 15.3 H BUN 12 Creatinine 0.80 Estimated Creat Clear 114 Estimated GFR 76 Est GFR ( Amer) 92 Glucose 210 H POC Glucose Lactate Calcium 8.5 Troponin I < 0.02 B-Natriuretic Peptide 122 H TSH 15.92 H Free T4 Index 3.4 L Thyroxine (T4) 9.6 T3 Uptake 35 DS: Diagnosis - Discharge Diagnosis (1) Atrial fibrillation/flutter Status: Acute (2) Acute bronchitis Status: Acute (3) Hypothyroidism Status: Acute (4) History of hypertension Status: Acute (5) Tobacco abuse Status: Acute Discharge Plan - Patient Discharge Instructions ACTIVITY: Continue current activity DIET: diabetic diet, low fat, low cholesterol Patient Instructions: Nicotine Addiction, DI for Atrial Fibrillation, DI for Hypothyroidism - Follow up Plan Follow up with: Elyse Calix MD [Primary Care Provider] - 01/19/18 Rudy Murphy PA [Physician Pc Tech] - 1 week Disposition: Home, Self-Nursing Home Medications: Home Medications Medication Instructions Recorded Confirmed Type metformin 1,000 mg tablet 500 mg PO BID tab 05/07/17 01/15/18 History Hydrocod/Acet 5/325 mg [[place] 1 tab PO Q4-6H PRN 01/14/18 01/14/18 History 5/325mg tablet] Cyclobenzaprine HCl 10 mg PO HS 01/15/18 01/15/18 History [Cyclobenzaprine 10mg Tab] Fenofibrate Nanocrystallized 145 mg PO DAILY 01/15/18 01/15/18 History [Fenofibrate] Levocetirizine Dihydrochloride 5 mg PO HS 01/15/18 01/15/18 History Levothyroxine 125mcg (0.125mg) Tab 125 mcg PO DAILY 01/15/18 01/15/18 History [place]-3 Fatty Acids/Fish Oil 2 each PO DAILY 01/15/18 01/15/18 History [[place] 3 1,000 mg Softgel] Vitamin D3 1,000 Unit Cap 1,000 units PO DAILY 01/15/18 01/15/18 History Prescriptions/Medication Reconciliation: New Azithromycin [Z-Cedric 250mg Tab] 250 mg PO UD DOSE PK #6 tab Cefdinir [Omnicef 300mg Capsule] 300 mg PO BID #20 cap Levalbuterol Tartrate [Xopenex Hfa] 15 gm IH TIDP PRN #1 [id number].aer.ad PRN Reason: Shortness Of Breath Or Wheezing Rivaroxaban [Xarelto 10mg tablet] 20 mg PO DAILY 30 Days #30 tablet dilTIAZem HCl [Cardizem CD 120mg Cap] 120 mg PO DAILY #30 cap.er.24h Continue metformin 1,000 mg tablet 500 mg PO BID tab Hydrocod/Acet 5/325 mg [[place] 5/325mg tablet] 1 tab PO Q4-6H PRN PRN Reason: PAIN Cyclobenzaprine HCl [Cyclobenzaprine 10mg Tab] 10 mg PO HS [place]-3 Fatty Acids/Fish Oil [[place] 3 1,000 mg Softgel] 2 each PO DAILY Vitamin D3 1,000 Unit Cap 1,000 units PO DAILY Levothyroxine 125mcg (0.125mg) Tab 125 mcg PO DAILY Levocetirizine Dihydrochloride 5 mg PO HS Fenofibrate Nanocrystallized [Fenofibrate] 145 mg PO DAILY Discontinued lisinopril 20 mg-hydrochlorothiazide 12.5 mg tablet 1 tab PO BID Aspirin [Aspirin 81mg EC Tab] 81 mg PO DAILY Losartan/Hydrochlorothiazide [Losartan-Hctz 50-12.5 mg Tab] 1 each PO DAILY Ibuprofen [Ibuprofen 800mg Tablet] 800 mg PO Q8HP PRN PRN Reason: Moderate Pain
== END 2018-01-15 17:34 | disposition home or self-care (01) ==
LOC: ER 13:07 → ICU 19:35 → INTOOBSV 19:59 → ICU 20:00 → 2ND 01-15 10:46
PROVIDERS: ADMIT Internal Medicine Adolescent Medicine; ATTEND Internal Medicine Adolescent Medicine

== ENCOUNTER 2019-05-21 00:27 | Observation (INO) ==
--- NOTE | 2019-05-21 00:57 | Emergency Department Note ---
ED Disposition Clinical Impression: Palpitations Atrial flutter Qualifiers: Atrial flutter type: unspecified Qualified Code(s): I48.92 - Unspecified atrial flutter Disposition: Admitted as Observation Condition on Discharge: Good Referrals: Provider,Referral, [Primary Care Provider] - - Critical Care Critical Care Time: No Attestation: On 05/21/19, the high probability of a clinically significant, sudden or life threatening deterioration of the following system(s) required my full and direct attention, intervention and personal management. The time I documented below is in addition to time spent performing reported procedures but includes the following listed in this critical care notation. Medical Decision Making - Medical Records Medical records reviewed: Yes: I reviewed the patient's medical records. - Colin Inquiry Pt receiving controlled substance: No Vital Signs: 05/21/19 00:27 05/21/19 00:30 05/21/19 00:45 Temperature 97.5 F L Temperature Source Oral Pulse Rate [Left Radial] 202 H 203 H 136 H Respiratory Rate 16 Blood Pressure [Right Arm] 137/104 H 118/90 118/80 Blood Pressure Mean [Right Arm] 115 99 92 Blood Pressure Source [Right Arm] Automatic Cuff Blood Pressure Position [Right Arm] Sitting 02 Sat by Pulse Oximetry 97 94 L 93 L Oxygen Delivery Method Room Air Room Air Room Air 05/21/19 01:00 05/21/19 01:15 05/21/19 01:30 Temperature Temperature Source Pulse Rate [Left Radial] 143 H 139 H 144 H Respiratory Rate Blood Pressure [Right Arm] 123/79 108/88 L 108/70 L Blood Pressure Mean [Right Arm] 93 94 82 Blood Pressure Source [Right Arm] Blood Pressure Position [Right Arm] 02 Sat by Pulse Oximetry 94 L 95 94 L Oxygen Delivery Method Room Air Room Air Room Air - Lab Data Lab results reviewed: Yes: I reviewed the patient's lab results. Lab Results 05/21/19 00:32: WBC 10.2, RBC 5.21, Hgb 16.1, Hct 47.6 H, MCV 91.3, MCH 30.9, MCHC 33.9, RDW 13.7, Plt Count 220, MPV 9.1, Neut % (Auto) 60.4, Lymph % (Auto) 33.5, [place] % (Auto) 3.4, Eos % (Auto) 2.2, Baso % (Auto) 0.5, Neut # (Auto) 6.2, Lymph # (Auto) 3.4, [place] # (Auto) 0.4, Eos # (Auto) 0.2, Baso # (Auto) 0.1 05/21/19 00:32: Sodium 135 L, Potassium 4.0, Chloride 103, Carbon Dioxide 21 L, Anion Gap 15.0, BUN 12 D, Creatinine 0.50 L, Estimated Creat Clear 176, Estimated GFR 130, Est GFR ( Amer) 157, Glucose 318 H, Calcium 9.4, Troponin I < 0.01 Result diagrams: 05/21/19 00:32 05/21/19 00:32 Orders (Tests/Meds): ED MEDICATIONS Generic Name Dose Route Start Last Admin Trade Name Freq PRN Reason Stop Dose Admin Sodium Chloride 1,000 mls @ 999 mls/hr 05/21/19 00:45 05/21/19 00:33 Sod Chlor 0.9% 1000ml Bag IV 05/21/19 01:45 999 mls/hr .Q1H1M GRACE Administration Diltiazem HCl 100 mg/ Sodium 100 mls @ 5 mls/hr 05/21/19 00:45 05/21/19 00:56 Chloride IV 06/20/19 00:44 5 mls/hr .Q20H GRACE Administration Protocol Discontinued Medications Generic Name Dose Route Start Last Admin Trade Name Freq PRN Reason Stop Dose Admin Adenosine 6 mg 05/21/19 00:33 05/21/19 00:33 Adenosine 6mg/2ml Vial IV 05/21/19 00:34 6 mg ONCE ONE Administration Diltiazem HCl 10 mg 05/21/19 00:45 05/21/19 00:56 Cardizem 25mg/5ml Vial IV 05/21/19 00:46 10 mg ONCE ONE Administration Diltiazem HCl 100 mg/ Sodium 100 mls @ 5 mls/hr 05/21/19 01:00 Chloride IV 06/20/19 00:59 .Q20H GRACE ORDERS Category Date Time Status XR chest portable Stat Exams 05/21/19 00:32 Taken Drug Screen,Urine Stat Lab 05/21/19 01:15 Received T4 (Thyroxine) Stat Lab 05/21/19 00:32 Received TSH [Thyroid Stimulating Hormone] Stat Lab 05/21/19 00:32 Received Troponin I Q3H Lab 05/21/19 03:45 Ordered Troponin I Q3H Lab 05/21/19 06:45 Ordered Urinalysis and Microscopic Stat Lab 05/21/19 01:15 Received - Radiology Data #1 Image(s): Chest Image Reviewed: Yes I reviewed the patient's radiology image Preliminary Findings: Normal/NAD - ECG Data Tracing #1 Arrhythmias present: aflutter Ischemic changes: non-specific ST-T wave changes - Physician Consults Physician Consulted: daniele Reason -: Admission Arrhythmia/Palpitations HPI - General Chief Complaint: Arrhythmia/Palpitations Stated Complaint: palpitations Time Seen by Provider: 05/21/19 00:30 Mode of Arrival: Ambulatory Source of Information: Patient, Spouse, Medical Record Limitations: No Limitations - History of Present Illness HPI narrative: pt with known a fib and was recently in ed with abd pain and had spleenic infart and sent to and seen in ed and d/c to use meds as she had been off xarelto- sudden inc hr tonight with no fever MD complaint: "heart racing" Onset (ago): hour(s) Duration: constant Severity: moderate Context: occurred during rest Arrhythmia history: atrial fibrillation, on anti-coagulants Associated symptoms: denies other symptoms (attemped vagal maneuvers - no change ) - Related Data Home Medications Medication Instructions Recorded Confirmed Fenofibrate Nanocrystallized 145 mg PO DAILY 05/21/19 05/21/19 [Fenofibrate] Levothyroxine Sodium 125 mcg PO DAILY 05/21/19 05/21/19 [Levothyroxine 125mcg (0.125mg) Tab] Metformin HCl [Metformin 1000mg 1,000 mg PO DAILY 05/21/19 05/21/19 Tablets] Rivaroxaban [Xarelto 2.5mg Tab*] 5 mg PO BID 05/21/19 05/21/19 Allergies Allergy/AdvReac Type Severity Reaction Status Date / Time No Known Allergies Allergy Verified 12/08/18 18:40 [facility] History - Hepatitis A Screen Drug use history?: No High risk sexual behaviors?: No History of sexually transmitted infection?: No Currently employed?: No Childcare worker?: No Do you have indoor plumbing?: Yes Do you have electricity?: Yes Attestation statement:: This patient has been screened for Hepatitis A risk factors. I have reviewed the patient's past medical history: Yes Medical History: Reports:: Chronic Obstructive Pulmonary Disease (COPD), Diabetes Mellitus Type 2, Hypertension Denies:: Cancer, Internal Pacemaker, MRSA Other Medical History: Reports: Arthritis, Hypothyroidism Other Surgeries: Yes: Appendectomy, Cholecystectomy, Hernia Repair, Tubal Ligation. No: Pacemaker Amputation: No Fractures: No Comment: Hemorrhoidectomy - Social History Smoking Status: Current every day smoker Tobacco Type: cigarettes # Packs/Day (cigarettes): 1 #Yrs smoked (if former smoker): 21 Alcohol Intake: never Substance Use Type: denies use Occupational Status: employed Housing: house Household Members: spouse Family Hx:: Heart Attack, Diabetes, Hypertension ROS Obtained: Yes All systems reviewed & no additional complaints - Constitutional Constitutional: Denies fever(s) - Eyes Eyes: Denies change in vision - ENT Ears, Nose, Mouth, and Throat: Denies sore throat - Cardiovascular Cardiovascular: Denies chest pain, Denies dyspnea, Reports rapid heart rate - Respiratory Respiratory: No cough - Gastrointestinal Gastrointestingal: Denies: abdominal pain - Genitourinary Female Genitourinary: Denies hematuria - Musculoskeletal Musculoskeletal: Denies joint pain, Denies joint swelling - Integumentary/Breasts Skin/Breast: Denies rash - Neurologic Neurologic: Denies tingling/numbness/burning sensations, Denies seizure-like activity Physical Exam - General General appearance: alert - Head Head exam: normocephalic - Eye Eye exam: Present: PERRL, EOMI. Absent: scleral icterus - ENT ENT exam: Present: mucous membranes dry - Neck Neck exam: Present: trachea midline - Respiratory Respiratory exam: Present: normal lung sounds bilaterally. Absent: respiratory distress - Cardiovascular Cardiovascular exam: Present: tachycardia. Absent: rubs - Abdominal Exam Abdominal exam: Present: soft - Extremities Exam Extremities exam: Present: full ROM. Absent: pedal edema, calf tenderness - Neurological Exam Neurological exam: Present: alert, oriented X3, CN II-XII intact. Absent: motor sensory deficit - Psychiatric Psychiatric exam: Present: normal affect - Skin Skin exam: Absent: rash
[2019-05-21 01:02] LABS: Chloride 103 mmol/L (98-107)
[2019-05-21 01:03] LABS: Sodium 135 mmol/L (136-145)
[2019-05-21 01:05] LABS: Blood Urea Nitrogen 12 mg/dl (7-17)
[2019-05-21 01:06] LABS: Basophils # 0.1 K/mm3 (0-0.2); Basophils % 0.5 % (0.1-2.0); Calcium 9.4 mg/dl (8.4-10.2); Carbon Dioxide 21 mmol/L (22.0-30.0); Eosinophils # 0.2 K/mm3 (0.0-0.4); Eosinophils % 2.2 % (0.1-12.0); Glucose 318 mg/dl (74-100); Hematocrit 47.6 % (37.0-47.0); Hemoglobin 16.1 g/dL (12.2-16.2); Lymphocytes # 3.4 K/mm3 (0.7-4.5); Lymphocytes % 33.5 % (10-50); Mean Corpuscular HGB Conc 33.9 g/dL (31.8-35.4); Mean Corpuscular Volume 91.3 fl (81-99); Mean Platelet Volume 9.1 fl (7.4-10.4); Monocytes # 0.4 K/mm3 (0.1-1.0); Monocytes % 3.4 % (1.7-9.3); Neutrophils # 6.2 K/mm3 (1.8-7.8); Neutrophils % 60.4 % (37.0-80.0); Platelet Count 220 K/mm3 (142-424); Red Blood Count 5.21 M/mm3 (4.20-5.40); Red Cell Distribution Width 13.7 % (11.5-17.5); White Blood Count 10.2 K/mm3 (4.8-10.8)
[2019-05-21 01:19] LABS: Microscopic, Urine URINE MICROSCOPIC (MICROSCOPIC)
[2019-05-21 01:38] LABS: Amphetamine/Metha Screen,Urine Negative ng/ml (<1000)
[2019-05-21 01:39] LABS: Barbiturates Screen,Urine Negative ng/ml (<200)
[2019-05-21 01:40] LABS: Benzodiazepines Screen,Urine Negative ng/ml (<200); Cannabinoid Screen,Urine Negative ng/ml (<50)
[2019-05-21 01:41] LABS: Cocaine Screen,Urine Negative ng/ml (<300)
[2019-05-21 01:42] LABS: Methadone Screen,Urine Negative ng/ml (<300); Opiate Screen,Urine Positive ng/ml (<300)
[2019-05-21 01:43] LABS: Appearance,Urine CLEAR (Clear); Bilirubin,Urine Negative (Negative); Blood, Urine Negative (Negative); Color,Urine YELLOW (Yellow); Glucose,Urine (UA) 3+ (Negative); Ketones,Urine TRACE (Negative); Leukocyte Esterase,Urine Negative (Negative); PH,Urine 5.5 (5.0-8.5); Phencyclidine Screen,Urine Negative ng/ml (<25); Protein,Urine Negative (Negative); Urobilinogen,Urine 0.2 EU/dl (0.2)
[2019-05-21 01:46] LABS: Bacteria,Urine 1+ /lpf; Mucus,Urine 1+ /lpf
[2019-05-21 02:26] LABS: Thyroid Stimulating Hormone 15.8 uIU/mL (0.465-4.68)
--- NOTE | 2019-05-21 07:16 | Pharmacy Consult Notes ---
[facility] Pharmacy VTE Monitoring - Patient Demographics Admission date: 05/21/19 Report Date: 05/21/19 Time: 07:16 Allergies/Adverse Reactions: Patient Allergies No Known Allergies Allergy (Verified 12/08/18 18:40) Height: 1.68 m Weight: 80.513 kg Patient Problems: Current Active Problems Atrial flutter (Acute) Palpitations (Acute) - VTE Risk Labs: VTE Related Lab Results Hgb 16.1 g/dL (12.2-16.2) 05/21/19 00:32 Hct 47.6 % (37.0-47.0) H 05/21/19 00:32 Plt Count 220 K/mm3 (142-424) 05/21/19 00:32 BUN 12 mg/dl (7-17) D 05/21/19 00:32 Creatinine 0.50 mg/dl (0.52-1.04) L 05/21/19 00:32 Estimated Creat Clear 176 mL/min (50-200) 05/21/19 00:32 VTE Score: 6 VTE Risk Level: Moderate Risk - Prophylaxis VTE Prophylaxis Ordered?: Yes Types of VTE Prophylaxis: TEDS Knee High Location of Applied Device: Bilateral Lower Extremeties - VTE Diagnosis Confirmed Treatment or plan recommended: Continue Current Treatment
[2019-05-21 07:27] LABS: Basophils % 0.4 % (0.1-2.0); Eosinophils # 0.2 K/mm3 (0.0-0.4); Mean Platelet Volume 8.9 fl (7.4-10.4); Monocytes # 0.3 K/mm3 (0.1-1.0); Red Cell Distribution Width 13.5 % (11.5-17.5)
[2019-05-21 07:31] LABS: Chloride 107 mmol/L (98-107); Sodium 138 mmol/L (136-145)
[2019-05-21 07:33] LABS: Blood Urea Nitrogen 8 mg/dl (7-17)
[2019-05-21 07:34] LABS: Anion Gap 10.8 mEq/L (5-15); Carbon Dioxide 24 mmol/L (22.0-30.0); Cholesterol 188 mg/dl (140-200)
[2019-05-21 07:35] LABS: Calcium 8.7 mg/dl (8.4-10.2); Chol/HDL Ratio 9.4 (1-3.5); Glucose 205 mg/dl (74-100); HDL Cholesterol 20 mg/dl (40-60)
--- NOTE | 2019-05-21 07:46 | H&P/Discharge Summary ---
General - General Admission date:: 05/21/19 Discharge date: 05/21/19 *Admission Date: 05/21/19 *Chief complaint: Palpitations *History of present illness: 3-year-old female with diabetes and history of atrial fibrillation with prior hospitalization here in December 2017 presented to the emergency department after onset of palpitations at home that were not improving. Patient admits she has had brief episodes of palpitations in the past that usually come and go. This time however palpitations were persistent and she decided to seek treatment at the emergency department. In the ER patient was found to be in atrial fibrillation with rapid ventricular response and was started on a Cardizem drip. Cardizem drip lowered her heart rate. Patient was admitted to the stepdown unit. Serial cardiac enzymes were ordered [facility] History I have reviewed the patient's past medical history: Yes Medical History: Reports:: Arrhythmia, Atrial Fibrillation, Chronic Obstructive Pulmonary Disease (COPD), Diabetes Mellitus Type 2, Hyperlipidemia, Hypertension Denies:: Cancer, Internal Pacemaker, MRSA *Have you ever received a pneumonia vaccine?: Yes *Have you received a flu vaccine this season?: Yes Other Medical History: Reports: Arthritis, Hypothyroidism Other Surgeries: Yes: Appendectomy, Cholecystectomy, Hernia Repair, Tubal Ligation. No: Pacemaker Amputation: No Fractures: No - *Social History Smoking Status: Current every day smoker Tobacco Type: cigarettes # Packs/Day (cigarettes): 1 #Yrs smoked (if former smoker): 21 Alcohol Intake: never Substance Use Type: denies use *Occupational Status:: employed Housing: house Household Members: spouse *Travel in the last 8 weeks: None Family Hx:: Asthma, Diabetes, Heart Attack, Hyperlipidemia, Hypertension, Thyroid Disorder Review of Systems - Review of Systems Review of systems:: pertinent systems reviewed and negative unless documented below - *Neurologic Denies tingling/numbness/burning sensations, Denies seizure-like activity Exam Vital signs and Labs for Last 24 Hours: Temp Pulse Resp BP Pulse Ox 98.0 F 59 L 20 112/66 94 L 05/21/19 04:00 05/21/19 06:00 05/21/19 06:00 05/21/19 06:00 05/21/19 06:00 Laboratory Results - last 24 hr 05/21/19 00:32: WBC 10.2, RBC 5.21, Hgb 16.1, Hct 47.6 H, MCV 91.3, MCH 30.9, MCHC 33.9, RDW 13.7, Plt Count 220, MPV 9.1, Neut % (Auto) 60.4, Lymph % (Auto) 33.5, [place] % (Auto) 3.4, Eos % (Auto) 2.2, Baso % (Auto) 0.5, Neut # (Auto) 6.2, Lymph # (Auto) 3.4, [place] # (Auto) 0.4, Eos # (Auto) 0.2, Baso # (Auto) 0.1 05/21/19 00:32: Sodium 135 L, Potassium 4.0, Chloride 103, Carbon Dioxide 21 L, Anion Gap 15.0, BUN 12 D, Creatinine 0.50 L, Estimated Creat Clear 176, Estimated GFR 130, Est GFR ( Amer) 157, Glucose 318 H, Calcium 9.4, Troponin I < 0.01 05/21/19 00:32: TSH 15.80 H, Thyroxine (T4) 9.2 05/21/19 01:15: Urine Color Yellow, Urine Appearance Clear, Urine pH 5.5, Ur Specific [place] 1.020, Urine Protein Negative, Urine Glucose (UA) 3+, Urine Ketones Trace, Urine Blood Negative, Urine Nitrate Negative, Urine Bilirubin Negative, Urine Urobilinogen 0.2, Ur Leukocyte Esterase Negative, Urine WBC 3-5, Ur Squamous Epith Cells 5-10, Urine Bacteria 1+, Urine Mucus 1+ 05/21/19 01:15: Urine Opiates Screen Positive H, Urine Methadone Screen Negative, Ur Barbituates Screen Negative, Ur Phencyclidine Scrn Negative, Ur Amphetamines Screen Negative, U Benzodiazepines Scrn Negative, Urine Cocaine Screen Negative, U Marijuana (THC) Screen Negative 05/21/19 03:45: Troponin I < 0.01 05/21/19 05:21: POC Glucose 243 H I & O for Last 24 hours: Intake & Output 05/18/19 05/19/19 05/20/19 05/21/19 11:59 11:59 11:59 11:59 Intake Total 1000 / 1000 Output Total 100 / 100 Balance 900 / 900 Weight 177 lb 8.012 oz - *Routine HEENT Exam Head: Present: normocephalic Eye: Present: EOMI, PERRL ENT: Present: mucous membranes moist - *Routine Neck Exam Present: supple. Absent: lymphadenopathy - *Routine Respiratory Exam Present: CTA bilaterally - *Routine Cardiovascular Exam Present: RRR - *Routine Abdominal Exam Present: soft, normoactive bowel sounds. Absent: tenderness - *Routine Extremities Exam Absent: cyanosis, clubbing, edema - *Routine Skin Exam Present: warm. Absent: rash - *Routine Neurological Exam Present: alert, oriented X3 Hospital Course Hospital Course: Patient was admitted to the stepdown unit and subsequently converted to a sinus rhythm. It came to like the patient has been noncompliant with medication therapy. Echocardiogram was ordered. Patient was transitioned from IV to oral Cardizem. Patient was discharged home later in the day. He has been advised to follow-up with her primary care physician regarding her multiple medical issues for which she has stopped taking her medications Results Labs on day of discharge: Labs from last 24 hours 05/21/19 05/21/19 05/21/19 05:21 03:45 01:15 WBC RBC Hgb Hct MCV MCH MCHC RDW Plt Count MPV Neut % (Auto) Lymph % (Auto) [place] % (Auto) Eos % (Auto) Baso % (Auto) Neut # (Auto) Lymph # (Auto) [place] # (Auto) Eos # (Auto) Baso # (Auto) Sodium Potassium Chloride Carbon Dioxide Anion Gap BUN Creatinine Estimated Creat Clear Estimated GFR Est GFR ( Amer) Glucose POC Glucose 243 H Calcium Troponin I < 0.01 TSH Thyroxine (T4) Urine Color Urine Appearance Urine pH Ur Specific [place] Urine Protein Urine Glucose (UA) Urine Ketones Urine Blood Urine Nitrate Urine Bilirubin Urine Urobilinogen Ur Leukocyte Esterase Urine WBC Ur Squamous Epith Cells Urine Bacteria Urine Mucus Urine Opiates Screen Positive H Urine Methadone Screen Negative Ur Barbituates Screen Negative Ur Phencyclidine Scrn Negative Ur Amphetamines Screen Negative U Benzodiazepines Scrn Negative Urine Cocaine Screen Negative U Marijuana (THC) Screen Negative 05/21/19 05/21/19 05/21/19 01:15 00:32 00:32 WBC RBC Hgb Hct MCV MCH MCHC RDW Plt Count MPV Neut % (Auto) Lymph % (Auto) [place] % (Auto) Eos % (Auto) Baso % (Auto) Neut # (Auto) Lymph # (Auto) [place] # (Auto) Eos # (Auto) Baso # (Auto) Sodium 135 L Potassium 4.0 Chloride 103 Carbon Dioxide 21 L Anion Gap 15.0 BUN 12 D Creatinine 0.50 L Estimated Creat Clear 176 Estimated GFR 130 Est GFR ( Amer) 157 Glucose 318 H POC Glucose Calcium 9.4 Troponin I < 0.01 TSH 15.80 H Thyroxine (T4) 9.2 Urine Color Yellow Urine Appearance Clear Urine pH 5.5 Ur Specific [place] 1.020 Urine Protein Negative Urine Glucose (UA) 3+ Urine Ketones Trace Urine Blood Negative Urine Nitrate Negative Urine Bilirubin Negative Urine Urobilinogen 0.2 Ur Leukocyte Esterase Negative Urine WBC 3-5 Ur Squamous Epith Cells 5-10 Urine Bacteria 1+ Urine Mucus 1+ Urine Opiates Screen Urine Methadone Screen Ur Barbituates Screen Ur Phencyclidine Scrn Ur Amphetamines Screen U Benzodiazepines Scrn Urine Cocaine Screen U Marijuana (THC) Screen 05/21/19 00:32 WBC 10.2 RBC 5.21 Hgb 16.1 Hct 47.6 H MCV 91.3 MCH 30.9 MCHC 33.9 RDW 13.7 Plt Count 220 MPV 9.1 Neut % (Auto) 60.4 Lymph % (Auto) 33.5 [place] % (Auto) 3.4 Eos % (Auto) 2.2 Baso % (Auto) 0.5 Neut # (Auto) 6.2 Lymph # (Auto) 3.4 [place] # (Auto) 0.4 Eos # (Auto) 0.2 Baso # (Auto) 0.1 Sodium Potassium Chloride Carbon Dioxide Anion Gap BUN Creatinine Estimated Creat Clear Estimated GFR Est GFR ( Amer) Glucose POC Glucose Calcium Troponin I TSH Thyroxine (T4) Urine Color Urine Appearance Urine pH Ur Specific [place] Urine Protein Urine Glucose (UA) Urine Ketones Urine Blood Urine Nitrate Urine Bilirubin Urine Urobilinogen Ur Leukocyte Esterase Urine WBC Ur Squamous Epith Cells Urine Bacteria Urine Mucus Urine Opiates Screen Urine Methadone Screen Ur Barbituates Screen Ur Phencyclidine Scrn Ur Amphetamines Screen U Benzodiazepines Scrn Urine Cocaine Screen U Marijuana (THC) Screen DS: Diagnosis - Discharge Diagnosis (1) Atrial fibrillation/flutter Status: Acute (2) History of atrial fibrillation Status: Acute (3) Hyperglycemia due to type 2 diabetes mellitus Status: Acute (4) Hypothyroidism Status: Acute (5) Tobacco abuse Status: Acute Discharge Plan - Patient Discharge Instructions ACTIVITY: Continue current activity DIET: continue same diet Patient Instructions: DI for Atrial Flutter, DI for Atrial Fibrillation - Follow up Plan Disposition: Home, Self-[facility] Medications: Home Medications Medication Instructions Recorded Confirmed Type Cyclobenzaprine HCl 10 mg PO HSP PRN 05/21/19 05/21/19 History [Cyclobenzaprine 10mg Tab] Fenofibrate Nanocrystallized 145 mg PO DAILY 05/21/19 05/21/19 History [Fenofibrate] Levothyroxine Sodium 125 mcg PO DAILY 05/21/19 05/21/19 History [Levothyroxine 125mcg (0.125mg) Tab] Losartan Potassium [Cozaar 25mg 25 mg PO DAILY 05/21/19 05/21/19 History Tablets] Metformin HCl 500 mg PO BID #60 tab 05/21/19 Rx Nicotine [Nicotine Patch 21 mg TD DAILY #28 patch 05/21/19 Rx 21mg/24hrs] Rivaroxaban [Xarelto 20mg Tablet*] 20 mg PO DAILY #30 tab 05/21/19 Rx dilTIAZem HCl [Diltiazem 24Hr ER] 120 mg PO DAILY #30 cer 05/21/19 Rx Prescriptions/Medication Reconciliation: New Nicotine [Nicotine Patch 21mg/24hrs] 21 mg TD DAILY #28 patch Continued Levothyroxine Sodium [Levothyroxine 125mcg (0.125mg) Tab] 125 mcg PO DAILY Fenofibrate Nanocrystallized [Fenofibrate] 145 mg PO DAILY Cyclobenzaprine HCl [Cyclobenzaprine 10mg Tab] 10 mg PO HSP PRN PRN Reason: Muscle Spasm dilTIAZem HCl [Diltiazem 24Hr ER] 120 mg PO DAILY #30 cer Metformin HCl 500 mg PO BID #60 tab Rivaroxaban [Xarelto 20mg Tablet*] 20 mg PO DAILY #30 tab Losartan Potassium [Cozaar 25mg Tablets] 25 mg PO DAILY - Problem Reconciliation Problems Reviewed?: Yes
[2019-05-21 07:52] LABS: Triglycerides 747 mg/dl (30-150)
[2019-05-21 07:56] LABS: Eosinophils % 2.3 % (0.1-12.0); Hematocrit 42.8 % (37.0-47.0); Lymphocytes # 2.6 K/mm3 (0.7-4.5); Lymphocytes % 30.1 % (10-50); Mean Corpuscular HGB Conc 32.6 g/dL (31.8-35.4); Mean Corpuscular Volume 92.5 fl (81-99); Neutrophils # 5.6 K/mm3 (1.8-7.8); Neutrophils % 64.2 % (37.0-80.0); Platelet Count 214 K/mm3 (142-424); Red Blood Count 4.63 M/mm3 (4.20-5.40); White Blood Count 8.7 K/mm3 (4.8-10.8)
--- NOTE | 2019-05-21 09:22 | Electrocardiograph Report ---
APPROVED REPORT Exam: Resting ECG HR:62 bpm ECG Measurements Heart Rate 62 AXES PA 160 P 50 QRSd 88 QRS 36 QT 434 T59 QTc 440 <Conclusion> Normal sinus rhythm Normal ECG Electronically signed by : Chucky Elizabeth, 05/19/2019 16:09:53
--- NOTE | 2019-05-21 14:34 | Cardiology Report ---
APPROVED REPORT EXAM: Comprehensive 2D, Doppler, and color-flow Echocardiogram News Content Specialist: Jessica Zamudio CRT Ht: 5 ft 6 in Wt: 185lbs BSA: 1.93 BP: 118/80 mmHg Indications: COPD, Atrial Fibrillation, Diabetes, Atrial Flutter, Hypertension/HDD, smoker 2D Dimensions LVOT 2.11 cm (M/F) 1.5-2.5 M-Mode Dimensions RVDd 2.66 cm (0.9-2.6)LVDd 5.48 cm (3.5-5.7) LVDs 3.29 cm (3.5-5.7)IVSd 0.81 cm (0.6-1.1) PWd 0.66 cm (0.6-1.1)EF (Teich) 70.00% FS 40.00% EDV (Teich) 146.20 mL ESV (Teich) 43.80 mL LV Diastology E/A Ratio 1.12 Mitral Valve MV A Velocity 44.00 (40-130 cm/s) Left Ventricle Left atrium is mildly enlarged, left ventricle is normal size, there is mild concentric left ventricular hypertrophy, visually estimated ejection fraction 55% with no regional wall motion abnormality, diastolic parameters are inconclusive. Right Ventricle Right atrium and right ventricular normal size and contractility. Aortic Valve Aortic valve is minimally thickened and fibrosed. There is no aortic stenosis aortic insufficiency. Mitral Valve Mitral valve is grossly normal, there is mild mitral regurgitation. Tricuspid Valve Tricuspid valve is grossly normal, there is mild tricuspid regurgitation. Tricuspid regurgitation jet velocity is inadequate for calculation of the right ventricular systolic pressure. Pulmonic Valve Pulmonic valve is poorly visualized. Great Vessels Aortic root is normal size. Pericardium No significant pericardial effusion noted. Conclusion 1. Mildly enlarged left atrium, normal left ventricular size, mild concentric left ventricular hypertrophy, visually estimated ejection fraction 55% with no regional wall motion abnormality, diastolic parameters are inconclusive. 2. Mild mitral and tricuspid regurgitation. 3. No significant pericardial effusion noted. Electronically signed by : Robert Bill, 05/21/2019 14:33:48
--- NOTE | 2019-05-24 08:03 | Electrocardiograph Report ---
APPROVED REPORT Exam: Resting ECG HR:202 bpm ECG Measurements Heart Rate 202 AXES QRSd 110 QRS 53 QT 246 T210 QTc 451 <Conclusion> Atrial fibrillation with rapid ventricular response with a competing junctional pacemaker Marked ST abnormality, possible inferolateral subendocardial injury Abnormal ECG Electronically signed by : Chucky Elizabeth, 05/24/2019 08:02:56
--- NOTE | 2019-05-24 08:03 | Electrocardiograph Report ---
APPROVED REPORT Exam: Resting ECG HR:81 bpm ECG Measurements Heart Rate 81 AXES IA 156 P 66 QRSd 92 QRS 50 QT 384 T51 QTc 446 <Conclusion> Normal sinus rhythm Normal ECG Electronically signed by : Chucky Elizabeth, 05/24/2019 08:02:48
== END 2019-05-21 08:44 | disposition home or self-care (01) ==
LOC: ER 00:27 → 2ND 01:39 → INTOOBSV 03:31 → 2ND 07:39
PROVIDERS: ADMIT Family Medicine; ATTEND Family Medicine
CPT/HCPCS: 36415; 71010; 71045; 80048; 80061; 80305; 81001; 82962; 83735; 84436; 84443; 84484; 85025; 93005; 93306; 96365; 96367; 96375; 99285; G0378

== ENCOUNTER 2019-12-04 23:22 | Emergency (ER) | payer MEDICAID, SELFPAY ==
[2019-12-04 23:41] VITALS: BP 134/75; PULSE 198; RESP 24; TEMP 36.6; O2SAT 98; BMI 30.4
--- NOTE | 2019-12-04 23:50 | HMH.EDGENADL ---
ED Disposition Clinical Impression: Supraventricular tachycardia Disposition: Home, Self-Care Condition on Discharge: Good Additional Instructions: Return to the emergency room if symptoms return. Call your facility supervisor tomorrow morning to arrange follow-up. Continue current medications. Referrals: Elyse Calix MD [Primary Care Provider] - - Critical Care Critical Care Time: Yes Attestation: On 12/04/19, the high probability of a clinically significant, sudden or life threatening deterioration of the following system(s) required my full and direct attention, intervention and personal management. The time I documented below is in addition to time spent performing reported procedures but includes the following listed in this critical care notation. Total Critical Care Time: 30 Vital system(s) involved:: Circulatory Failure My critical care processes included: Assessment & monitoring of V/S, Initial and Re-exams, Data Review/Interpretation, Coordinating Care, Medication Orders and management, Documentation Medical Decision Making - Medical Records Medical records reviewed: Yes: I reviewed the patient's medical records. - Colin Inquiry Pt receiving controlled substance: No Vital Signs: 12/04/19 23:41 12/05/19 00:00 12/05/19 00:37 Temperature 97.9 F Temperature Source Oral Pulse Rate Pulse Rate [Right Brachial] 198 H 193 H 87 Respiratory Rate 24 17 17 Blood Pressure Blood Pressure [Right Arm] 134/75 100/69 L 116/81 Blood Pressure Mean [Right Arm] 94 79 92 Blood Pressure Source Blood Pressure Source [Right Arm] Automatic Cuff Automatic Cuff Automatic Cuff Blood Pressure Position Blood Pressure Position [Right Arm] Sitting Sitting Sitting 02 Sat by Pulse Oximetry 98 97 99 Oxygen Delivery Method Room Air Room Air Room Air 12/05/19 02:30 12/05/19 02:31 Temperature 97.9 F Temperature Source Oral Pulse Rate 76 Pulse Rate [Right Brachial] 74 Respiratory Rate 18 17 Blood Pressure 110/67 Blood Pressure [Right Arm] 110/67 Blood Pressure Mean [Right Arm] 81 Blood Pressure Source Automatic Cuff Blood Pressure Source [Right Arm] Blood Pressure Position Sitting Blood Pressure Position [Right Arm] 02 Sat by Pulse Oximetry 94 L Oxygen Delivery Method Room Air Room Air - Lab Data Lab results reviewed: Yes: I reviewed the patient's lab results. Lab Results 12/04/19 23:41: WBC 14.3 H, RBC 5.17, Hgb 16.6 H, Hct 48.0 H, MCV 92.9, MCH 32.1 H, MCHC 34.5, RDW 13.4, Plt Count 340, MPV 8.5, Neut % (Auto) 67.0, Lymph % (Auto) 26.4, Meeker % (Auto) 3.8, Eos % (Auto) 2.3, Baso % (Auto) 0.5, Neut # (Auto) 9.6 H, Lymph # (Auto) 3.8, Meeker # (Auto) 0.5, Eos # (Auto) 0.3, Baso # (Auto) 0.1 12/04/19 23:41: Sodium 139, Potassium 3.4 L, Chloride 100, Carbon Dioxide 26, Anion Gap 16.4 H, BUN 11, Creatinine 0.70, Estimated Creat Clear 127, Estimated GFR 88, Est GFR ( Amer) 106, Glucose 204 H, Calcium 10.1, Total Bilirubin 0.5, AST 24, ALT 20, Alkaline Phosphatase 87, Troponin I < 0.01, Total Protein 8.4 H, Albumin 4.6, Globulin 3.8 H, Albumin/Globulin Ratio 1.2 Result diagrams: 12/04/19 23:41 12/04/19 23:41 Orders (Tests/Meds): ED MEDICATIONS Discontinued Medications Generic Name Dose Route Start Last Admin Trade Name Freq PRN Reason Stop Dose Admin Adenosine 6 mg 12/05/19 00:08 12/05/19 00:01 Adenosine 6mg/2ml Vial IV 12/05/19 00:09 6 mg ONCE ONE Administration Adenosine 12 mg 12/05/19 00:08 12/05/19 00:06 Adenosine 6mg/2ml Vial IV 12/05/19 00:09 12 mg ONCE ONE Administration Sodium Chloride 1,000 mls @ 999 mls/hr 12/05/19 00:30 12/05/19 00:07 Sod Chlor 0.9% 1000ml Bag IV 12/05/19 01:30 999 mls/hr .Q1H1M GRACE Administration ORDERS Category Date Time Status XR chest 2V Stat Exams 12/05/19 00:06 Taken - Radiology Data #1 Image(s): Chest Image Reviewed: Yes I reviewed the patient's radiology image Preliminary Findings: Normal/NA
[2019-12-05] VITALS: BP 100/69; PULSE 193; RESP 17; O2SAT 97
--- NOTE | 2019-12-05 00:01 | PC.NURSE ---
CRASH CART AT BEDSIDE, NURSING AND MD AT BEDSIDE. INITIAL ADENOSINE GIVEN NO RESPONSE.
--- NOTE | 2019-12-05 00:06 | XR_ITS ---
PROCEDURE: XR CHEST 2V CLINICAL HISTORY: CHEST DISCOMFORT FROM INCR HEART RATE COMPARISON: CR CXR2V XR chest 2V from 10/29/2017 CR CXR1VP XR chest portable from 01/14/[address] angio chest from 01/14/2018 CR XR CHEST PORTABLE from 05/21/2019 FINDINGS: The cardiomediastinal silhouette and pulmonary vascularity are within normal limits. The lungs are clear without infiltrates, suspicious nodules, or pleural effusions. No acute bony abnormalities. IMPRESSION: No acute findings. Dictated by: Dr. Harinder Jo MD 12/05/2019 08:51 Dr. Harinder Jo MD in [place] 12/05/2019 08:51
--- NOTE | 2019-12-05 00:06 | ECG_ITS ---
APPROVED REPORT Exam: Resting ECG HR:197 bpm ECG Measurements Heart Rate 197 AXES QRSd 92 QRS 68 QT 244 T 251 QTc 442 <Conclusion> Supraventricular tachycardia Marked ST abnormality, possible inferolateral subendocardial injury Abnormal ECG Electronically signed by : Chucky Elizabeth, 12/05/2019 14:57:30
--- NOTE | 2019-12-05 00:07 | PC.NURSE ---
ADENOSINE 12MG GIVEN RAPID IVP WITH MD AT BEDSIDE. IMMEDIATE RESPONSE OF HEART RHYTHM; DECR TO 24 BPM, THEN REBOUNDED TO 72 BPM
[2019-12-05 00:37] VITALS: BP 116/81; PULSE 87; RESP 17; O2SAT 99
[2019-12-05 01:21] LABS: Basophils # 0.1 K/mm3 (0-0.2); Basophils % 0.5 % (0.1-2.0); Eosinophils # 0.3 K/mm3 (0.0-0.4); Eosinophils % 2.3 % (0.1-12.0); Hemoglobin 16.6 g/dL (12.2-16.2); Lymphocytes # 3.8 K/mm3 (0.7-4.5); Lymphocytes % 26.4 % (10-50); Mean Corpuscular HGB Conc 34.5 g/dL (31.8-35.4); Mean Corpuscular Hemoglobin 32.1 pg (27.0-31.2); Mean Corpuscular Volume 92.9 fl (81-99); Mean Platelet Volume 8.5 fl (7.4-10.4); Monocytes # 0.5 K/mm3 (0.1-1.0); Monocytes % 3.8 % (1.7-9.3); Neutrophils # 9.6 K/mm3 (1.8-7.8); Platelet Count 340 K/mm3 (142-424); Red Blood Count 5.17 M/mm3 (4.20-5.40); Red Cell Distribution Width 13.4 % (11.5-17.5); White Blood Count 14.3 K/mm3 (4.8-10.8)
[2019-12-05 01:32] LABS: Alanine Aminotransferase 20 U/L (12-78); Albumin Level 4.6 g/dl (3.5-5.0); Albumin/Globulin Ratio 1.2 (1.1-1.8); Alkaline Phosphatase 87 U/L (38-126); Anion Gap 16.4 mEq/L (5-15); Aspartate Amino Transferase 24 U/L (14-36); Bilirubin,Total 0.5 mg/dl (0.2-1.3); Blood Urea Nitrogen 11 mg/dl (7-17); Calcium 10.1 mg/dl (8.4-10.2); Carbon Dioxide 26 mmol/L (22.0-30.0); Chloride 100 mmol/L (98-107); Creatinine Clearance Estimated 127 mL/min (50-200); Estimated Glomerular Filt Rate 88 ml/min (>60); GFR (African American) 106 ML/MIN (>60); Globulin 3.8 g/dL (1.3-3.2); Glucose 204 mg/dl (74-100); Potassium 3.4 mmoL/L (3.5-5.1); Sodium 139 mmol/L (136-145); Total Protein,Serum 8.4 g/dl (6.3-8.2)
[2019-12-05 01:45] LABS: Troponin I < 0.01 ng/ml (0.00-0.034)
[2019-12-05 02:30] VITALS: BP 110/67; PULSE 74; RESP 18; O2SAT 94
[2019-12-05 02:31] VITALS: BP 110/67; PULSE 76; RESP 17; TEMP 36.6; O2SAT 96
== END 2019-12-05 02:51 | disposition home or self-care (01) ==
PROVIDERS: Emergency Provider Emergency Medicine; PCP Family Medicine
DX: I47.1 Supraventricular tachycardia (principal); I48.0 Paroxysmal atrial fibrillation; E11.65 Type 2 diabetes mellitus with hyperglycemia; E03.9 Hypothyroidism, unspecified; I10 Essential (primary) hypertension; E78.5 Hyperlipidemia, unspecified; F17.210 Nicotine dependence, cigarettes, uncomplicated; Z90.49 Acquired absence of other specified parts of digestive tract; Z79.899 Other long term (current) drug therapy
CPT/HCPCS: 71046; 80053; 84484; 85025; 93005; 96365; 96375; 99284

== ENCOUNTER → 2020-07-04 13:44 | Outpatient (CLI) | payer BC, OTHER, SELFPAY | PROVIDERS: PCP Family Medicine Adult Medicine; Visit Provider Nurse Practitioner Family | DX: G47.33 Obstructive sleep apnea (adult) (pediatric) (principal); R07.9 Chest pain, unspecified; R06.00 Dyspnea, unspecified; R40.0 Somnolence; R94.31 Abnormal electrocardiogram [ECG] [EKG]; I48.0 Paroxysmal atrial fibrillation | CPT/HCPCS: 95806 ==

== ENCOUNTER → 2020-07-05 10:55 | Outpatient (CLI) | payer BC, OTHER, SELFPAY ==
--- NOTE | 2020-07-05 10:55 | CA_ITS ---
APPROVED REPORT EXAM: Comprehensive 2D, Doppler, and color-flow Echocardiogram Debt And Budget Counselor: Aicha Hernandez, RCS, RVS Ht: 5 ft 7 in Wt: 193lbs BSA: 1.99 BP: 118/68 mmHg Indications: Smoker, abn ekg, SOA, hx-afib, svt Echo Enhancing Agent Comments: Overriding Aorta 2D Dimensions Aortic Root 3.87 cm LA Volume 81.20 mL Left Atrium 2.46 cm LA Volume Index 40.80 mL/m2 (M/F) 16-34 LVOT 2.13 cm (M/F) 1.5-2.5 M-Mode Dimensions RVDd 2.07 cm (0.9-2.6) LA Diam 3.09 cm (1.9-4.0) LVDd 5.62 cm (3.5-5.7) Ao Diam 3.97 cm (2.0-3.7) LVDs 3.41 cm (3.5-5.7) IVSd 0.94 cm (0.6-1.1) PWd 1.00 cm (0.6-1.1) EF (Teich) 69.10% EPSs 0.27 cm FS 39.30% EDV (Teich) 154.90 mL TAPSE 3.26 (<1.7) ESV (Teich) 47.80 mL LV Diastology E Decel Time 310.00 (160-240 msec) E/A Ratio 1.24 MED E' 9.60 (< 7 cm/sec) MED A' 8.40 cm/s E'/MED E' Ratio 8.19 (>14) LAT E' 10.30 (<10 cm/sec) LAT A' 8.90 cm/s E/LAT E' Ratio 7.63 (>14) Pulm Vein s 34.00 cm/sec Pulm Vein d 32.00 cm/sec Ar-A Duration 143.00 msec Aortic Valve LVOT Max 93.00 (70-110 cm/s) LVOT VTI 21.26 cm AoV Peak Diego. 130.00 (50-130 cm/s) AO Peak GR. 6.80 mmHg AO Mean GR. 3.40 (<5 mmHg) AO VTI 24.43 (18-25 cm) BECCA (VTI) 3.10 (2.5-4.5 cm2) Mitral Valve MV E Max Diego. 79.00 (40-130 cm/s) MV A Velocity 64.00 (40-130 cm/s) E/A Ratio 1.24 MV Decel. Time 310.00 (160-240 ms) MV PHT 91.00 ms Pulmonary Valve PV Peak Velocity 78.00 (50-150 cm/s) OK End VMAX 163.00 cm/s Tricuspid Valve TR P. Velocity 204.00 cm/s RAP Estimate 10.00 mmHg RVSP 26.70 mmHg Left Ventricle Left atrium is mildly enlarged, left ventricle is normal size, there is no concentric left ventricular hypertrophy, visually estimated ejection fraction 55% with no regional wall motion abnormality, diastolic parameters are inconclusive. Right Ventricle Right atrium and right ventricle are normal size and contractility. Aortic Valve Aortic valve is minimally thickened and fibrosed, there is no aortic stenosis or aortic insufficiency. Mitral Valve Mitral valve is grossly normal, there is mild mitral regurgitation. Tricuspid Valve Tricuspid valve grossly normal, there is mild tricuspid regurgitation, tricuspid regurgitation jet velocity is inadequate for calculation of the right ventricular systolic pressure. Pulmonic Valve Pulmonic valve is poorly visualized. Great Vessels Aortic root is normal size. Pericardium No significant pericardial effusion noted. Conclusion 1. Mildly enlarged left atrium, normal left ventricular size, visually estimated ejection fraction 55% with no regional wall motion abnormality, diastolic parameters are inconclusive. 2. Mild mitral and tricuspid regurgitation. 3. No significant pericardial effusion noted. Electronically signed by : Robert Bill, 07/06/2020 13:09:40
--- NOTE | 2020-07-05 10:55 | CA_ITS ---
APPROVED REPORT Exam: Pharmacologic Technologist: Carole Shin Ht: 5 ft 7 in Wt: 190 lbs BSA: 1.98 m2 HR: 59 bpm BP: 140/59 mmHg Indications: Shortness of Air, chest pain Medical History Medications: Omeprazole,,,,, Metoprolol,,,,, Vitamin D3,,,,, Losartan,,,,, Atorvastatin,,,,, DulOXETINE,,,,, FeNOfibrate,,,,, LanTUS,,,,, Cyclobenzaprine,,,,, DilTiazem,,,,, Levocetirizine,,,,, Hydroxyzine,,,,, Stress Test Details Test: LEXISCAN HR Resting HR: 57 bpm Max Heart Rate (APMHR): 168.379503 bpm Max HR Achieved: 94 bpm Target HR (85% APMHR): 142.111831 bpm % of APMHR: 55.95 Recovery HR: 76 bpm BP Resting BP: 140.0/59.0 mmHg Max BP: 141.0/70.0 mmHg Recovery BP: 137.0/65.0 mmHg ECG Resting ECG: Sinus bradycardia, low voltage QRS Clinical Exercise duration: 04:03 min Highest Stage Achieved: Stress ECG Conclusion Symptoms: Mild shortness of air, malaise, and headache. No chest pain. Arrhythmias/Ectopy: None ST-T Changes: T wave inversion with [address] depression inferiorly and 0.75 mm laterally. Conclusion: EKG changes suggestive of ischemia with Lexiscan stress. Myoview images reported separately. Test Summary REST . . . . . . . Resting REST 04:56 . . 57 . 140/ 59 . . Stage 1 . . . . . . . Myoview Injected Stage 1 01:00 . . 79 . . . . Stage 2 01:00 . . 91 . . . . Stage 3 01:00 . . 87 . 141/ 70 . . Stage 4 01:00 . . 83 . 131/ 69 . . Stage 4 01:03 . . 85 . 131/ 69 . Stop exercise at 04:03 RECOVERY 01:00 . . 80 . 141/ 67 . . RECOVERY 02:00 . . 83 . 141/ 67 . . RECOVERY 03:00 . . 77 . 141/ 67 . . RECOVERY 04:00 . . 78 . 137/ 65 . . RECOVERY 05:00 . . 78 . 137/ 65 . . RECOVERY 05:18 . . 66 . 137/ 65 . . Electronically signed by : Robert Bill, 07/06/2020 10:12:17
--- NOTE | 2020-07-05 11:50 | NM_ITS ---
APPROVED REPORT Exam: Nuclear Stress Test Indication: HTN, DM, HYPERLIPIDEMIA, TOB USE, FM HX, C.P., SOB, PALPITATIONS, A-FIB, FATIGUE, ABN EKG Patient Location: Outpatient Stress Tech: Carole Shin NM Tech:Nilsa Vernon, ARRT RT (R)(N)(M) Ht: 5 ft 6 in Wt: 190 lbs Bra Size: 44D HR: 59 bpm BP: 140/50 mmHg BSA: 1.96 m2 BMI: 30.6 History: HTN, DM, HYPERLIPIDEMIA, TOB USE, FM HX, C.P., SOB, PALPITATIONS, A-FIB, FATIGUE, ABN EKG Procedure: Patient received a 0.4 mg of intravenous Lexiscan, resting heart rate 59 bpm, resting blood pressure 140/50 mmHg, with Lexiscan maximum heart rate achived was 89 bpm which is Less than 85 % of the maximum predicted heart rate and blood pressure was 141/70 mmHg. With Lexiscan, patient denied any complaint of chest pain. Electrocardiogram Resting electrocardiogram showed sinus rhythm nonspecific ST-T changes, with Lexiscan there is additional millimeter ST segment depression noted from the baseline EKG. The EKG portion of the Lexiscan is positive for ischemia. Cardiac Stress and Resting SPECT Images: Cardiac Stress and Resting SPECT images were obtained using technetium 99m Myoview 31.2 mCi stress and 10.35 mCi at rest. Gated SPECT for analysis of segmental wall motion and calculation of the ejection fraction also done, prone images were also obtained. Cardiac stress and resting SPECT images show uniform myocardial activity without segmental perfusion abnormality, computer derived ejection fraction is 53% with no regional wall motion abnormality, right ventricle is normal size and contractility, there is transient ischemic dilatation of the left ventricle raising the concerns for presence of balanced ischemia. Conclusion: 1. The EKG portion of the Lexiscan is positive for ischemia. 2. No scintigraphic evidence of reversible ischemia seen, computer derived ejection fraction is 53% with no regional wall motion abnormality, right ventricle is normal size and contractility. There is transient ischemic dilatation of the left ventricle presents raising the concerns for presence of balanced ischemia. 3. Abnormal Lexiscan Myoview study. Electronically signed by : Robert Bill, 07/06/2020 10:15:30
== END ==
PROVIDERS: PCP Family Medicine Adult Medicine; Visit Provider Nurse Practitioner Family
DX: R06.00 Dyspnea, unspecified (principal); R07.9 Chest pain, unspecified; I48.0 Paroxysmal atrial fibrillation; R94.31 Abnormal electrocardiogram [ECG] [EKG]; F17.200 Nicotine dependence, unspecified, uncomplicated
CPT/HCPCS: 78452; 93017; 93306; A9502; J2785

== ENCOUNTER → 2020-07-22 11:37 | Outpatient (CLI) | payer BC, OTHER, SELFPAY ==
--- NOTE | 2020-07-22 | XR_ITS ---
PROCEDURE INFORMATION: Exam: XR Right Knee Exam date and time: 07/22/2020 12:00 AM Age: 54 years old Clinical indication: Patient HX: Bilateral chronic knee pain TECHNIQUE: Imaging protocol: XR Right knee. Views: 3 views. COMPARISON: CR XR KNEE RT 3V 11/12/2018 7:22 PM FINDINGS: Bones/joints: There is no evidence of acute fracture. There is no evidence of joint malalignment or dislocation. Soft tissues: There are no soft tissue masses or fluid collections. IMPRESSION: 1. No evidence of acute fracture. 2. No evidence of acute dislocation.
--- NOTE | 2020-07-22 | XR_ITS ---
PROCEDURE INFORMATION: Exam: XR Left Knee Exam date and time: 07/22/2020 12:00 AM Age: 54 years old Clinical indication: Patient HX: Bilateral chronic knee pain; Additional info: Bilat knee pain TECHNIQUE: Imaging protocol: XR Left knee. Views: 3 views. COMPARISON: CR [id number] XR knee LT 3V 10/21/2017 8:19 PM FINDINGS: Bones/joints: There is no evidence of acute fracture. There is no evidence of joint malalignment or dislocation. Soft tissues: There are no soft tissue masses or fluid collections. IMPRESSION: 1. No evidence of acute fracture. 2. No evidence of acute dislocation.
== END ==
PROVIDERS: PCP Family Medicine Adult Medicine; Visit Provider Family Medicine Adult Medicine
DX: M25.562 Pain in left knee (principal); M25.561 Pain in right knee; E11.9 Type 2 diabetes mellitus without complications; Z79.4 Long term (current) use of insulin
CPT/HCPCS: 73562

== ENCOUNTER → 2020-07-26 14:25 | Outpatient (CLI) | payer BC, OTHER, SELFPAY ==
[2020-07-26 16:21] LABS: Ferritin 122 ng/ml (11.1-264)
[2020-07-26 16:54] LABS: Folate 4.02 ng/mL
[2020-07-28 17:08] LABS: Antiparietal Cell Antibody 12.2 Units (0.0-20.0)
[2020-07-28 18:13] LABS: Homocyst(e)ine 23.5 umol/L (0.0-14.5)
[2020-07-31 20:27] LABS: Intrinsic Factor Abs, Serum 0.9 AU/mL (0.0-1.1)
[2020-08-02 15:46] LABS: Methylmalonic Acid 74 nmol/L (0-378)
== END ==
PROVIDERS: Specialist; Visit Provider Nurse Practitioner Family
DX: E53.8 Deficiency of other specified B group vitamins (principal); G62.9 Polyneuropathy, unspecified
CPT/HCPCS: 36415; 82131; 82728; 82746; 83090; 83516; 86340

== ENCOUNTER → 2020-07-31 13:27 | Outpatient (CLI) | payer BC, OTHER, SELFPAY ==
--- NOTE | 2020-07-31 13:55 | MR_ITS ---
PROCEDURE: MR KNEE RT WO CON CLINICAL INDICATION: OTHER TEAR OF MEDIAL MENISCUS COMPARISON: No exams were available for comparison TECHNIQUE: Routine multiplanar multi echo sequences are performed without gadolinium enhancement. FINDINGS: There is a complex tear of the anterior root of the medial meniscus. The body, posterior root and the lateral meniscus are intact. There is heterogeneous signal intensity noted within the ACL but appears intact. The PCL is intact. The MCL and LCL complex are intact. The extensor mechanism is intact. Posterolateral corner structures demonstrate no focal abnormality. Popliteal tendon is unremarkable. Small joint effusion is noted. Minor grade 2 cartilage loss is noted in the medial and lateral compartments. Subchondral cystic change is noted measuring 1.6 times 1.6 centimeters in the lateral femoral condyle. Otherwise the bone marrow signal intensity is within normal limits without marrow infiltrative process. There is minor prepatellar soft tissue signal abnormality. Minor soft tissue edema. Tricompartmental degenerative changes with osteophyte formation and prominence of the intercondylar tubercles are noted. IMPRESSION: Complex tear of the anterior root of the medial meniscus. Small joint effusion. Tricompartmental early degenerative changes. Minor pre patellar bursitis. Dictated by: Brenda Strong 07/31/2020 16:48 Brenda Strong in [place] 07/31/2020 16:48
[2020-07-31 14:27] LABS: Chloride 107 mmol/L (98-107)
[2020-07-31 14:28] LABS: Potassium 3.4 mmoL/L (3.5-5.1); Sodium 140 mmol/L (136-145)
[2020-07-31 14:31] LABS: Anion Gap 13.4 mEq/L (5-15); Basophils % 0.4 % (0.1-2.0); Blood Urea Nitrogen 6 mg/dl (7-17); Calcium 9.8 mg/dl (8.4-10.2); Carbon Dioxide 23 mmol/L (22.0-30.0); Eosinophils # 0.2 K/mm3 (0.0-0.4); Eosinophils % 2.2 % (0.1-12.0); Estimated Glomerular Filt Rate 88 ml/min (>60); GFR (African American) 106 ML/MIN (>60); Glucose 117 mg/dl (74-100); Hematocrit 41.8 % (37.0-47.0); Lymphocytes # 2.1 K/mm3 (0.7-4.5); Lymphocytes % 25.3 % (10-50); Mean Corpuscular HGB Conc 33.6 g/dL (31.8-35.4); Mean Corpuscular Hemoglobin 30.9 pg (27.0-31.2); Mean Corpuscular Volume 92.1 fl (81-99); Mean Platelet Volume 8.4 fl (7.4-10.4); Monocytes # 0.2 K/mm3 (0.1-1.0); Monocytes % 2.8 % (1.7-9.3); Neutrophils # 5.7 K/mm3 (1.8-7.8); Neutrophils % 69.4 % (37.0-80.0); Platelet Count 308 K/mm3 (142-424); Red Blood Count 4.54 M/mm3 (4.20-5.40); Red Cell Distribution Width 13.4 % (11.5-17.5); White Blood Count 8.3 K/mm3 (4.8-10.8)
[2020-07-31 15:01] LABS: Thyroid Stimulating Hormone 1.64 uIU/mL (0.465-4.68)
== END ==
PROVIDERS: Internal Medicine; Specialist; PCP Family Medicine Adult Medicine; Visit Provider Family Medicine Adult Medicine
DX: Z01.818 Encounter for other preprocedural examination (principal); Z20.822 Contact with and (suspected) exposure to COVID-19; E03.9 Hypothyroidism, unspecified; S83.241A Other tear of medial meniscus, current injury, right knee, initial encounter
CPT/HCPCS: 36415; 73721; 80048; 84443; 85025; U0003

== ENCOUNTER 2020-08-01 08:51 | Day surgery (SDC) | payer BC, OTHER, SELFPAY ==
[2020-08-01] VITALS (13 sets, daily range): BP systolic 120–156; BP diastolic 37–89; PULSE 50–70; RESP 17–20; TEMP 36.7; O2SAT 92–98; BMI 29.2
--- NOTE | 2020-08-01 | IR_ITS ---
APPROVED REPORT Patient Location: Outpatient Applications Support Analyst: MICKY Barker RT (R) PROCEDURES Left heart catheterization Left ventriculogram Selective coronary angiogram Drug-eluting stent deployment to the proximal and mid dominant right coronary artery INDICATION High risk abnormal Myoview with transient left ventricular dilatation, Coronary disease, Angina pectoris Informed consent was obtained prior to the procedure. COMPLICATIONS None Estimated Blood Loss: less than 10ml TECHNIQUE One percent lidocaine used to anesthetize the right anterior aspect of the wrist. The right radial artery was accessed via the Seldinger technique. A 6 Kosovan sheath was placed in the right radial artery. 2.5 mg of verapamil, 800 mcg of nitroglycerin, 1mg Lidocaine and 5000 U Heparin were given through the arterial sheath. The trap catheter was also used to perform left heart catheterization, left ventriculogram and selective coronary angiogram. At the end of the procedure therapeutic heparin was administered and and I Shanthi right guide catheter was used to intubate the right coronary artery. Choice PT extra-support wire was placed distally and a 4 mm x 38 mm resolute Austin stent was deployed at 24 daniella reducing the severe stenosis to 0%. JOSIE-3 flow was present before and after the procedure. At the end the procedure the apparatus was removed the sheath was removed good hemostasis was achieved using TR banding patient was transferred to the postop holding area in stable condition ANGIOGRAPHIC RESULTS The left main artery Normal The left anterior descending artery Has proximal 20 to 30% stenosis The circumflex artery Nondominant and normal The right coronary artery Is a large dominant vessel with proximal 30% stenosis and an eccentric greater than 90% severe mid vessel stenosis immediately distal to the RV marginal branch. Distally there is an eccentric plaque creating a 30% stenosis followed by a dilated area. Distally mild 10% luminal irregularities are present The TRONCOSO ventriculogram reveals 65% The left ventricular end-diastolic pressure 10 to 15 mmHg IMPRESSION Severe to critical disease in a large dominant right coronary Successful stenting of the proximal to mid dominant right coronary critical disease reduced to 0% with 1 drug-eluting stent Normal ejection fraction Borderline elevated LVEDP Persistent eccentric 30% stenosis which has a large shoulder going into a cleft-like eccentric plaque PLAN 1. Dual antiplatelet therapy plus Xarelto for 30 days then discontinue aspirin and continue Plavix plus Xarelto 2. LDL less than 55 3. Cardiac rehabilitation 4. Avoidance of tobacco products 5. Risk factor modification Electronically signed by : Jonathan Longoria, 08/01/2020 11:45:53
--- NOTE | 2020-08-01 13:58 | HMH.PHACLD ---
Rochelle Tracey has received discharge medication counseling on the following medications: PATIENT IS ALREADY TAKING ATORVASTATIN 20 MG HS, METOPROLOL SUCCINATE 25 MG DAILY, AND LOSARTAN 25 MG DAILY. MD IS ADDING ASPIRIN 81 MG DAILY X1 MONTH AND CLOPIDOGREL 75 MG DAILY AT THIS TIME. PATIENT ALSO REQUESTED NICOTINE PATCH PRESCRIPTION FOR SMOKING CESSATION.
[2020-08-01 15:11] LABS: CATHL Activated Clotting Time 235 SEC (74-125)
== END 2020-08-01 14:54 | disposition home or self-care (01) ==
LOC: CATHLAB 08:52
PROVIDERS: PCP Family Medicine Adult Medicine; Visit Provider Internal Medicine
DX: I25.118 Atherosclerotic heart disease of native coronary artery with other forms of angina pectoris (principal); E11.9 Type 2 diabetes mellitus without complications; Z79.4 Long term (current) use of insulin; I48.0 Paroxysmal atrial fibrillation; J44.9 Chronic obstructive pulmonary disease, unspecified; I10 Essential (primary) hypertension; F17.210 Nicotine dependence, cigarettes, uncomplicated; Z82.49 Family history of ischemic heart disease and other diseases of the circulatory system; E78.2 Mixed hyperlipidemia; I47.1 Supraventricular tachycardia; Z79.899 Other long term (current) drug therapy
CPT/HCPCS: 85347; 92928; 93458; 99152; C1725; C1769; C1876; C9600; J1644; Q9967

== ENCOUNTER 2020-08-09 14:11 | Outpatient (RCR) | payer BC, OTHER, SELFPAY | END 2020-11-06 10:45 | disposition home or self-care (01) | LOC: PT 14:11 | PROVIDERS: Visit Provider Internal Medicine | DX: Z95.5 Presence of coronary angioplasty implant and graft (principal) | CPT/HCPCS: 93798 ==

== ENCOUNTER → 2020-08-11 13:28 | Outpatient (CLI) | payer BC, OTHER, SELFPAY ==
[2020-08-11 13:46] LABS: Basophils % 0.5 % (0.1-2.0); Eosinophils # 0.1 K/mm3 (0.0-0.4); Eosinophils % 1.7 % (0.1-12.0); Hematocrit 39.7 % (37.0-47.0); Hemoglobin 13.2 g/dL (12.2-16.2); Lymphocytes # 2.4 K/mm3 (0.7-4.5); Lymphocytes % 28.5 % (10-50); Mean Corpuscular HGB Conc 33.2 g/dL (31.8-35.4); Mean Corpuscular Hemoglobin 30.8 pg (27.0-31.2); Mean Corpuscular Volume 92.8 fl (81-99); Mean Platelet Volume 8.6 fl (7.4-10.4); Monocytes # 0.2 K/mm3 (0.1-1.0); Monocytes % 2.8 % (1.7-9.3); Neutrophils # 5.6 K/mm3 (1.8-7.8); Neutrophils % 66.6 % (37.0-80.0); Platelet Count 288 K/mm3 (142-424); Red Blood Count 4.27 M/mm3 (4.20-5.40); Red Cell Distribution Width 13.2 % (11.5-17.5); White Blood Count 8.5 K/mm3 (4.8-10.8)
[2020-08-11 14:25] LABS: Chloride 106 mmol/L (98-107); Sodium 139 mmol/L (136-145)
[2020-08-11 14:26] LABS: Potassium 3.7 mmoL/L (3.5-5.1)
[2020-08-11 14:29] LABS: Anion Gap 12.7 mEq/L (5-15); Blood Urea Nitrogen 7 mg/dl (7-17); Calcium 9.5 mg/dl (8.4-10.2); Carbon Dioxide 24 mmol/L (22.0-30.0); Estimated Glomerular Filt Rate 75 ml/min (>60); GFR (African American) 91 ML/MIN (>60); Glucose 122 mg/dl (74-100)
== END ==
PROVIDERS: Visit Provider Internal Medicine
DX: Z95.5 Presence of coronary angioplasty implant and graft (principal)
CPT/HCPCS: 36415; 80048; 85025

== ENCOUNTER → 2020-09-06 14:39 | Outpatient (CLI) | payer BC, OTHER, SELFPAY ==
[2020-09-06 17:09] LABS: Vitamin B12 261 pg/mL (239-931)
== END ==
PROVIDERS: Visit Provider Specialist
DX: R06.00 Dyspnea, unspecified (principal); I20.9 Angina pectoris, unspecified; I48.0 Paroxysmal atrial fibrillation; Z95.5 Presence of coronary angioplasty implant and graft
CPT/HCPCS: 36415; 82607

== ENCOUNTER → 2020-11-20 12:30 | Outpatient (CLI) | payer BC, SELFPAY ==
[2020-11-20 14:10] LABS: Anion Gap 16.3 mEq/L (5-15); Blood Urea Nitrogen 7 mg/dl (7-17); Calcium 9.1 mg/dl (8.4-10.2); Carbon Dioxide 25 mmol/L (22.0-30.0); Chloride 104 mmol/L (98-107); Estimated Glomerular Filt Rate 75 ml/min (>60); GFR (African American) 91 ML/MIN (>60); Glucose 230 mg/dl (74-100); Potassium 4.3 mmoL/L (3.5-5.1); Sodium 141 mmol/L (136-145)
== END ==
PROVIDERS: Visit Provider Nurse Practitioner Family
DX: R07.9 Chest pain, unspecified (principal); R06.00 Dyspnea, unspecified; I25.10 Atherosclerotic heart disease of native coronary artery without angina pectoris
CPT/HCPCS: 36415; 80048

== ENCOUNTER → 2021-12-17 09:26 | Outpatient (CLI) | payer BC, SELFPAY ==
[2021-12-17 10:15] LABS: Chloride 101 mmol/L (98-107); Sodium 140 mmol/L (136-145)
[2021-12-17 10:16] LABS: Potassium 3.8 mmoL/L (3.5-5.1)
[2021-12-17 10:18] LABS: Blood Urea Nitrogen 11 mg/dl (7-17); Estimated Glomerular Filt Rate 87 ml/min (>60); GFR (African American) 106 ML/MIN (>60)
[2021-12-17 10:19] LABS: Anion Gap 15.8 mEq/L (5-15); Calcium 8.9 mg/dl (8.4-10.2); Carbon Dioxide 27 mmol/L (22.0-30.0); Glucose 273 mg/dl (74-100)
== END ==
PROVIDERS: Visit Provider Nurse Practitioner Family
DX: I25.10 Atherosclerotic heart disease of native coronary artery without angina pectoris (principal); R00.2 Palpitations; I10 Essential (primary) hypertension; R60.0 Localized edema; F17.200 Nicotine dependence, unspecified, uncomplicated; R94.31 Abnormal electrocardiogram [ECG] [EKG]; Z86.79 Personal history of other diseases of the circulatory system; Z95.5 Presence of coronary angioplasty implant and graft
CPT/HCPCS: 36415; 80048

== ENCOUNTER → 2022-07-12 11:02 | Outpatient (CLI) | payer BC, MEDICARE, SELFPAY ==
--- NOTE | 2022-07-12 11:10 | MM_ITS ---
PROCEDURE INFORMATION: Exam: MG Bilateral Screening 3D Mammography Exam date and time: 07/12/2022 10:59 AM Age: 56 years old Clinical indication: Screening. No family history of breast cancer. TECHNIQUE: Imaging protocol: Bilateral Screening tomosynthesis and 2D mammography including computer-aided detection (CAD) when performed. COMPARISON: 1. MG MAMMO DIAGNOSTIC DIGITAL TOMOSYNTHESIS RIGHT W CAD 01/05/2020 10:40 AM 2. MG MAMMO SCREENING DIGITAL TOMOSYNTHESIS BILATERAL W CAD 11/16/2019 2:36 PM FINDINGS: MAMMOGRAPHY: Breast composition: The breasts are heterogeneously dense, which may obscure small masses. Mass: No suspicious mass. Architectural distortion: None. Calcifications: No suspicious calcifications. Asymmetric density: None. Skin thickening: None. Axillary adenopathy: None. Other: Left biopsy clip. IMPRESSION: No mammographic evidence of malignancy. Annual screening is recommended unless otherwise clinically indicated. ASSESSMENT: BI-RADS Category 2: Benign
== END ==
PROVIDERS: PCP Nurse Practitioner Family; Visit Provider Nurse Practitioner Family
DX: Z12.31 Encounter for screening mammogram for malignant neoplasm of breast (principal)
CPT/HCPCS: 77063; 77067

== ENCOUNTER → 2022-12-09 10:09 | Outpatient (CLI) | payer BC, MEDICARE, SELFPAY ==
--- NOTE | 2022-12-09 10:19 | CA_ITS ---
APPROVED REPORT EXAM: Comprehensive 2D, Doppler, and color-flow Echocardiogram Gi Technician: Jessica Zamudio CRT Ht: 5 ft 6 in Wt: 192lbs BSA: 1.97 BP: 126/70 mmHg Indications: Abnormal ECG, Chest Pain, Shortness of Breath, Atrial Fibrillation, Hyperlipidemia, Hypertension/HDD, stent, SVT 2D Dimensions LVOT 2.10 cm (M/F) 1.5-2.5 LA Volume 29.90 mL LA Volume Index 14.90 mL/m2 (M/F) 16-34 M-Mode Dimensions RVDd 3.04 cm (0.9-2.6) LA Diam 2.73 cm (1.9-4.0) LVDd 4.43 cm (3.5-5.7) Ao Diam 4.27 cm (2.0-3.7) LVDs 3.14 cm (3.5-5.7) IVSd 1.39 cm (0.6-1.1) PWd 1.00 cm (0.6-1.1) EF (Teich) 56.10% FS 29.10% EDV (Teich) 89.10 mL TAPSE 3.20 (<1.7) ESV (Teich) 39.10 mL LV Diastology E Decel Time 180.00 (160-240 msec) E/A Ratio 0.91 MED E' 7.10 (< 7 cm/sec) MED A' 8.90 cm/s E'/MED E' Ratio 9.55 (>14) LAT E' 8.90 (<10 cm/sec) LAT A' 14.50 cm/s E/LAT E' Ratio 7.62 (>14) Aortic Valve AO Peak GR. 5.10 mmHg Mitral Valve MV A Velocity 74.00 (40-130 cm/s) E/A Ratio 0.91 MV Decel. Time 180.00 (160-240 ms) Pulmonary Valve PV Peak Velocity 85.00 (50-150 cm/s) Tricuspid Valve TR P. Velocity 109.00 cm/s RAP Estimate 10.00 mmHg RVSP 14.70 mmHg Left Ventricle The left ventricle is normal size. The left ventricular systolic function is normal. The left ventricular ejection fraction is within the normal range. There is normal left ventricular wall thickness. There is normal LV segmental wall motion. The left ventricular diastolic function is normal. LVEF is 60%. Right Ventricle The right ventricle is normal size. The right ventricular systolic function is normal. Atria The left atrium size is normal. The right atrium size is normal. The interatrial septum is not well visualized. Aortic Valve The aortic valve opens well. There is no aortic valvular stenosis. Trace aortic regurgitation. Mitral Valve The mitral valve is normal in structure. No evidence of mitral valve stenosis. Mild mitral regurgitation. Tricuspid Valve The tricuspid valve leaflets are thin and pliable. Trace tricuspid regurgitation. There is insufficient TR jet to estimate RVSP. Pulmonic Valve The pulmonary valve is normal in structure. Trace pulmonic regurgitation. Great Vessels Aortic root is mildly dilated. The aortic root measures 4.1 cm. The ascending aorta is normal in size. IVC is normal in size and collapses >50% with inspiration. Pericardium There is no pericardial effusion. Other Information Study Quality: Fair Conclusion Normal biventricular systolic function. No significant valvular stenosis or regurgitation. Mildly dilated aortic root 4.1 cm. Electronically signed by : Annie Cheema MD 12/13/2022 22:09:25
--- NOTE | 2022-12-09 10:54 | NM_ITS ---
APPROVED REPORT Exam: Nuclear Stress Test Indication: CAD, 1 STENT, HTN, DM, HYPERLIPIDEMIA, TOB USE, FM HX, C.P., PALPITATIONS, FATIGUE, EDEMA Patient Location: Outpatient Stress Tech: Carole Shin AR Tech:Nilsa Vernon, ARRT RT (R)(N)(M) Ht: 5 ft 6 in Wt: 190 lbs Bra Size: 44dd HR: 57 bpm BP: 136/69 mmHg BSA: 1.96 m2 Rhythm: NSR TID: 1.15 BMI: 30.6 History: CAD, 1 STENT, HTN, DM, HYPERLIPIDEMIA, TOB USE, FM HX, C.P., PALPITATIONS, FATIGUE, EDEMA Procedure: Patient received 0.4 mg of intravenous Lexiscan, resting heart rate 57 bpm, resting blood pressure 136/69 mmHg, with Lexiscan maximum heart rate achieved was 85 bpm which is % of the maximum predicted heart rate and blood pressure was 150/78 mmHg. With Lexiscan, patient denied any complaint of chest pain. Cardiac Stress and Resting SPECT Images: Cardiac Stress and Resting SPECT images were obtained using technetium 99m Myoview 31.4 mCi stress and 10.44 mCi at rest. Resting and stress imaging in supine and prone positions demonstrate a medium-sized, severe, predominantly fixed perfusion defect in the distal anterior, anteroseptal, and apical LV mullins. There are some regions of reversibility towards the septal wall. Gated imaging demonstrates low-normal global LV systolic function. There is moderate hypokinesis in the apical LV wall. LVEF is calculated at 53%. Conclusion: Medium-sized, severe, predominantly fixed perfusion defect in the distal anterior, anteroseptal, and apical LV mullins. There are some regions of reversibility towards the septal wall. Findings are suggestive of partial reversible ischemia. Gated imaging demonstrates low-normal global LV systolic function. There is moderate hypokinesis in the apical LV wall. LVEF is calculated at 53%. Electronically signed by : Annie Cheema MD 12/15/2022 17:25:24
--- NOTE | 2022-12-09 13:45 | CA_ITS ---
APPROVED REPORT Exam: Pharmacologic Technologist: Carole Shin Ht: 5 ft 6 in Wt: 192 lbs BSA: 1.97 m2 HR: 57 bpm BP: 136/69 mmHg Rhythm: NSR Indications: Chest pain Medical History Medications: Vitamin D3,,,,, Losartan,,,,, Glimepiride,,,,, Toprol,,,,, Nicotine,,,,, Protonix,,,,, CloPIdogrel,,,,, Janumet,,,,, Cyclobenzaprine,,,,, Levocetirizine,,,,, Hydroxyzine,,,,, RoSUVASTATIN,,,,, Stress Test Details Test: LEXISCAN HR Resting HR: 62 bpm Max Heart Rate (APMHR): 165 bpm Max HR Achieved: 105 bpm Target HR (85% APMHR): 140 bpm % of APMHR: 64 Recovery HR: 66 bpm BP Resting BP: 136.0/69.0 mmHg Max BP: 150.0/78.0 mmHg Recovery BP: 135.0/70.0 mmHg ECG Resting ECG: Sinus Rhythm, non-specific ST changes in inferolateral leads Stress ECG: No significant ST changes Arrhythmia: Brief burst of atrial tachycardia (4-5 beats) Clinical Exercise duration: 04:00 min Highest Stage Achieved: Exercise capacity: 1.0 METs Stress ECG Conclusion Symptoms: Headache Arrhythmias/Ectopy: brief burst of atrial tachycardia (4-5 beats) ST-T Changes: No significant ST changes Conclusion: Unremarkable Lexiscan stress test. Brief burst of atrial tachycardia (4-5 beats) after Lexiscan administration. Myoview images are reported separately. Test Summary REST . . . . . . . Resting REST 02:52 . . 62 . 136/ 69 . . Stage 1 . . . . . . . Myoview Injected Stage 1 01:00 . . 89 . . . . Stage 2 01:00 . . 84 . 150/ 78 . . Stage 3 01:00 . . 77 . 145/ 79 . . Stage 4 01:00 . . 75 . 137/ 79 . Stop exercise at 04:00 RECOVERY 01:00 . . 72 . 134/ 74 . . RECOVERY 02:00 . . 69 . 134/ 74 . . RECOVERY 03:00 . . 66 . 127/ 71 . . RECOVERY 03:25 . . 67 . 135/ 70 . . Electronically signed by : Annie Cheema MD 12/15/2022 17:21:20
== END ==
PROVIDERS: PCP Nurse Practitioner Family; Visit Provider Internal Medicine
DX: F17.200 Nicotine dependence, unspecified, uncomplicated (principal); I10 Essential (primary) hypertension; I25.10 Atherosclerotic heart disease of native coronary artery without angina pectoris; R06.00 Dyspnea, unspecified; R60.0 Localized edema; R94.31 Abnormal electrocardiogram [ECG] [EKG]; Z95.5 Presence of coronary angioplasty implant and graft
CPT/HCPCS: 78452; 93017; 93306; A9502; J2785

== ENCOUNTER 2022-12-20 09:50 | Day surgery (SDC) | payer BC, MEDICARE, SELFPAY ==
[2022-12-20] VITALS (12 sets, daily range): BP systolic 109–167; BP diastolic 56–97; PULSE 46–83; RESP 17–18; TEMP 37; O2SAT 96–100; BMI 31.1
--- NOTE | 2022-12-20 07:18 | IR_ITS ---
APPROVED REPORT Patient Location: Outpatient PROCEDURES Left heart catheterization Left ventriculogram Selective coronary angiogram Drug-eluting stent deployment to the ostial proximal left main artery Intravascular ultrasound to the left main artery INDICATION Coronary artery disease, High risk abnormal Myoview, Angina pectoris, Low syntax score, Complex coronary artery stenting where IVUS guided stenting improves mortality over straight angiography Informed consent was obtained prior to the procedure. COMPLICATIONS NONE Estimated Blood Loss: LESS THAN 10 ML TECHNIQUE One percent lidocaine used to anesthetize the right anterior aspect of the wrist. The right radial artery was accessed via the Seldinger technique. A 6 [place] sheath was placed in the right radial artery. 2.5 mg of Verapamil, 800 mcg of nitroglycerin, 1mg Lidocaine and 5000 U Heparin were given through the arterial sheath. The papa catheter was also used to perform left heart catheterization, left ventriculogram and selective coronary angiogram. At the end the diagnostic angiogram therapeutic heparin was administered and the guide catheter was placed in the left coronary cusp followed by a BMW wire placed into the LAD. A 4.5 x 12 mm Arturo frontier stent was deployed at 14 daniella of the ostial proximal left main artery reducing the severe stenosis to 0%. JOSIE-3 flow was present before and after the procedure. At the end the procedure intravascular ultrasound probe was advanced which demonstrated wide patency of the stent with excellent apposition and excellent landing. The apparatus was removed the sheath was removed and hemostasis was achieved using TR banding patient was transferred to the postop putting in stable addition ANGIOGRAPHIC RESULTS The left main artery Has an ostial eccentric 70 to 80% stenosis with a distal 10 to 20% stenosis The left anterior descending artery Has proximal and mid vessel 10 to 20% diffuse stenoses. The circumflex artery Is nondominant gives rise to a ramus intermedius which has mild 10 to 20% luminal irregularities along with 10 to 20% stenosis in the circumflex artery itself The right coronary artery Is a large dominant vessel and has stents in the proximal segment which are widely patent free of in-stent restenosis flex and proximal distal transitioning. There is additional 30% stenoses at campuzano's crook. There is additional 30% stenoses in the distal portion along with diffuse 10% and 20% stenoses throughout the PDA and posterior lateral branch The TRONCOSO ventriculogram reveals Normal 60% The left ventricular end-diastolic pressure 20 mmHg IMPRESSION Severe ostial left main disease which correlated well to the high risk abnormal Myoview Low syntax score Successful stenting of the ostial left main artery severe disease reduced to 0% with 1 drug-eluting stent Patent stent in the right coronary artery with moderate distal disease PLAN 1. Effient 10 mg daily plus aspirin 81 mg daily 2. LDL less than 55 to be achieved with high intensity statin 3. Avoidance of tobacco products 4. Risk factor modification 5. Cardiac rehabilitation Electronically signed by : Jonathan Longoria MD 12/20/2022 13:05:08
[2022-12-20 10:32] LABS: Basophils # 0.1 K/mm3 (0-0.2); Basophils % 0.8 % (0.1-2.0); Eosinophils # 0.2 K/mm3 (0.0-0.4); Eosinophils % 2.8 % (0.1-12.0); Hemoglobin 14.6 g/dL (12.2-16.2); Lymphocytes # 1.5 K/mm3 (0.7-4.5); Lymphocytes % 21.8 % (10-50); Mean Corpuscular Hemoglobin 32.1 pg (27.0-31.2); Mean Corpuscular Volume 94.6 fl (81-99); Mean Platelet Volume 8.9 fl (7.4-10.4); Monocytes # 0.2 K/mm3 (0.1-1.0); Monocytes % 3.5 % (1.7-9.3); Neutrophils # 4.8 K/mm3 (1.8-7.8); Neutrophils % 71.1 % (37.0-80.0); Platelet Count 182 K/mm3 (142-424); Red Blood Count 4.54 M/mm3 (4.20-5.40); White Blood Count 6.8 K/mm3 (4.8-10.8)
[2022-12-20 10:35] LABS: Chloride 105 mmol/L (98-107); Potassium 4.1 mmoL/L (3.5-5.1); Sodium 134 mmol/L (136-145)
[2022-12-20 10:37] LABS: Blood Urea Nitrogen 4 mg/dl (7-17); Creatinine Clearance Estimated 176 mL/min (50-200); Estimated Glomerular Filt Rate 128 ml/min (>60); GFR (African American) 155 ML/MIN (>60)
[2022-12-20 10:38] LABS: Anion Gap 13.1 mEq/L (5-15); Calcium 8.4 mg/dl (8.4-10.2); Carbon Dioxide 20 mmol/L (22.0-30.0); Glucose 302 mg/dl (74-100)
[2022-12-20 13:34] LABS: CATHL Activated Clotting Time 274 SEC (74-125)
== END 2022-12-20 16:10 | disposition home or self-care (01) ==
PROVIDERS: PCP Nurse Practitioner Family; Visit Provider Internal Medicine
DX: F17.210 Nicotine dependence, cigarettes, uncomplicated; I10 Essential (primary) hypertension; I25.118 Atherosclerotic heart disease of native coronary artery with other forms of angina pectoris; R94.31 Abnormal electrocardiogram [ECG] [EKG]; Z95.5 Presence of coronary angioplasty implant and graft; Z79.01 Long term (current) use of anticoagulants; Z79.899 Other long term (current) drug therapy; E11.9 Type 2 diabetes mellitus without complications; I48.0 Paroxysmal atrial fibrillation; E78.5 Hyperlipidemia, unspecified
CPT/HCPCS: 80048; 85025; 85347; 92928; 92978; 93458; 99152; C1725; C1769; C1876; C9600; J1644; Q9967

== ENCOUNTER → 2022-12-30 11:32 | Outpatient (CLI) | payer BC, MEDICARE, SELFPAY ==
[2022-12-30 12:07] LABS: Basophils # 0.1 K/mm3 (0-0.2); Basophils % 0.9 % (0.1-2.0); Eosinophils # 0.1 K/mm3 (0.0-0.4); Eosinophils % 2.1 % (0.1-12.0); Hematocrit 41.8 % (37.0-47.0); Hemoglobin 14.2 g/dL (12.2-16.2); Lymphocytes # 1.5 K/mm3 (0.7-4.5); Lymphocytes % 21.5 % (10-50); Mean Corpuscular Hemoglobin 31.2 pg (27.0-31.2); Mean Corpuscular Volume 91.7 fl (81-99); Mean Platelet Volume 8.8 fl (7.4-10.4); Monocytes # 0.2 K/mm3 (0.1-1.0); Monocytes % 3.1 % (1.7-9.3); Neutrophils # 4.9 K/mm3 (1.8-7.8); Neutrophils % 72.4 % (37.0-80.0); Platelet Count 200 K/mm3 (142-424); Red Blood Count 4.56 M/mm3 (4.20-5.40); Red Cell Distribution Width 13.8 % (11.5-17.5); White Blood Count 6.7 K/mm3 (4.8-10.8)
[2022-12-30 12:51] LABS: Chloride 105 mmol/L (98-107); Potassium 4.3 mmoL/L (3.5-5.1); Sodium 133 mmol/L (136-145)
[2022-12-30 12:53] LABS: Blood Urea Nitrogen 6 mg/dl (7-17); Estimated Glomerular Filt Rate 128 ml/min (>60); GFR (African American) 155 ML/MIN (>60)
[2022-12-30 12:54] LABS: Alanine Aminotransferase 33 U/L (12-78); Albumin Level 3.5 g/dl (3.5-5.0); Alkaline Phosphatase 90 U/L (38-126); Aspartate Amino Transferase 29 U/L (14-36); Bilirubin,Direct 0.4 mg/dl (0.0-0.4); Bilirubin,Total 0.4 mg/dl (0.2-1.3); Calcium 8.6 mg/dl (8.4-10.2); Carbon Dioxide 20 mmol/L (22.0-30.0); Cholesterol 256 mg/dl (140-200); Glucose 291 mg/dl (74-100); Hemoglobin A1C 8.5 % (4.0-6.0); Total Protein,Serum 6.6 g/dl (6.3-8.2)
[2022-12-30 12:55] LABS: HDL Cholesterol 19 mg/dl (40-60)
[2022-12-30 12:56] LABS: Anion Gap 12.3 mEq/L (5-15)
[2022-12-30 12:57] LABS: Chol/HDL Ratio 13.5 (1-3.5)
[2022-12-30 13:10] LABS: Free T4 (Free Thyroxine) 1.28 ng/dl (0.78-2.19)
[2022-12-30 14:54] LABS: Triglycerides 2585 mg/dl (30-150)
[2022-12-30 19:10] LABS: Direct LDL Cholesterol < 30.00 mg/dL (100-129)
[2022-12-30 19:30] LABS: Thyroid Stimulating Hormone 3.93 uIU/mL (0.465-4.68)
== END ==
PROVIDERS: PCP Nurse Practitioner Family; Visit Provider Internal Medicine
DX: R06.00 Dyspnea, unspecified; R60.0 Localized edema; E11.9 Type 2 diabetes mellitus without complications; I25.10 Atherosclerotic heart disease of native coronary artery without angina pectoris; I10 Essential (primary) hypertension; F17.200 Nicotine dependence, unspecified, uncomplicated; R94.31 Abnormal electrocardiogram [ECG] [EKG]; I63.9 Cerebral infarction, unspecified; I11.9 Hypertensive heart disease without heart failure; Z79.84 Long term (current) use of oral hypoglycemic drugs; Z95.5 Presence of coronary angioplasty implant and graft; I20.89 Other forms of angina pectoris
CPT/HCPCS: 36415; 80048; 80061; 80076; 83036; 84439; 84443; 85025

== ENCOUNTER 2023-01-20 14:16 | Emergency (ER) | payer BC, MEDICARE, SELFPAY ==
[2023-01-20 14:30] VITALS: BP 144/76; PULSE 70; RESP 18; TEMP 36.9; O2SAT 98; BMI 31.5
--- NOTE | 2023-01-20 14:32 | EXP.UTC ---
Discharge Plan Disposition Patient Disposition: Home, Self-Care Condition: Good Prescriptions Prescriptions: New promethazine-DM 6.25-15 mg/5 mL Syrup 5 ml PO Q6H PRN (Reason: Cough) Qty: 240 0RF prednisone 10 mg tablet 10 mg PO DIRECTED 9 Days Qty: 21 0RF Rx Instructions: Take 4 tablets daily for 3 days, then take 2 tablets daily for 3 days, then take 1 tablet daily for 3 days, then stop. amoxicillin-pot clavulanate 875-125 mg Tablet 1 tab PO Q12H Qty: 20 0RF guaifenesin [Mucinex] 600 mg tablet extended release 12hr 600 - 1,200 mg PO BIDP PRN (Reason: Congestion) Qty: 30 0RF No Action Trulicity 3 mg/0.5 mL pen injector 3 mg SQ WEEKLY Xarelto 15 mg tablet 15 mg PO DAILY Qty: 30 5RF Rx Instructions: must administer with evening meal Ozempic 0.25 mg or 0.5 mg (2 mg/3 mL) pen injector 0.25 mg SQ WEEKLY Qty: 3 2RF Rx Instructions: for 4 weeks sitagliptin phos-metformin 50-1,000 mg tablet 1 tab PO BID Hold Instructions: Resume on 12/23/22. hold for 2 days Patient Comments: TAKE 1 TABLET BY MOUTH TWICE DAILY WITH MEALS levocetirizine 5 mg tablet 5 mg PO DAILY Patient Comments: TAKE 1 TABLET BY MOUTH ONCE DAILY IN THE EVENING glimepiride 4 mg tablet 4 mg PO DAILY cholecalciferol (vitamin D3) 25 mcg (1,000 unit) capsule 25 mcg PO DAILY hydroxyzine HCl 25 mg tablet 25 mg PO HS Patient Comments: TAKE 1 TABLET BY MOUTH AT NIGHT NEEDED FOR ANXIETY losartan 25 mg tablet 25 mg PO DAILY Qty: 90 3RF furosemide 40 mg tablet See Rx Instructions .ROUTE .COMPLEX Qty: 90 4RF Dose Instruction: TAKE 1 TABLET BY MOUTH ONCE DAILY Rx Instructions: TAKE 1 TABLET BY MOUTH ONCE DAILY icosapent ethyl [Vascepa] 1 gram capsule 2 g PO BID Qty: 120 5RF clopidogrel 75 mg tablet See Rx Instructions .ROUTE .COMPLEX Rx Instructions: Take 1 tablet by mouth once daily pantoprazole [Protonix] 20 mg tablet,delayed release (DR/EC) 20 mg PO DAILY metoprolol succinate [Toprol XL] 25 mg tablet extended release 24 hr 25 mg PO BID nicotine 21-14-7 mg/24 hr patch, TD daily, sequential 1 patch TRANSDERMA Q24H rosuvastatin 20 mg tablet 20 mg PO DAILY ranolazine 1,000 mg tablet extended release 12 hr 1,000 mg PO BID aspirin 81 mg Tablet,Chewable 81 mg PO DAILY Qty: 30 0RF levothyroxine 125 MCG tablet 125 mcg PO DAILY cyclobenzaprine 10 MG tablet 10 mg PO HSP PRN (Reason: Muscle Spasm) Referrals Follow up/Referrals: Luly Tierney APRN [Primary Care Provider] - See instructions Activity Restrictions/Add. Instructions Additional Instructions/Restrictions: Drink plenty of fluids. Take tylenol or ibuprofen for pain or fever. Take the medications as directed. Follow up with your regular doctor. GO TO THE ER FOR ANY WORSENING SYMPTOMS The cough medication (promethazine dm) will make you drowsy, so don't drive or operate heavy machinery after taking it. Clinical Impressions Clinical Impression: Acute bronchitis Instructions Patient Instructions: Acute Bronchitis, DI for Acute Bronchitis, Ceftriaxone Injection Discharge ED Provider: Pradeep Samuels [facility] [place] HPI General Stated complaint: cough,congestion,runny nose,headahce,ear pain Time Seen by Provider: 01/20/23 14:32 History of Present Illness Provider Complaint: She states that for the past 1 week he has had sinus congestion and a cough. Related Data Home Medications Medication Instructions Recorded Confirmed cyclobenzaprine 10 mg tablet 10 mg PO HSP PRN Muscle Spasm 05/21/19 12/30/22 levothyroxine 125 mcg tablet 125 mcg PO DAILY hypothyroidism 05/21/19 12/30/22 cholecalciferol (vitamin D3) 25 25 mcg PO DAILY . 06/13/20 12/30/22 mcg (1,000 unit) capsule glimepiride 4 mg tablet 4 mg PO DAILY . 06/13/20 12/30/22 levocetirizine 5 mg tablet 5 mg PO DAILY .
--- NOTE | 2023-01-20 14:46 | XR_ITS ---
FINAL REPORT CLINICAL HISTORY: Nonspecific cough COMPARISON: 12/05/2019 FINDINGS: Two views of the chest were obtained. The heart size and pulmonary vascularity are within normal limits. The mediastinum is normal. No acute pulmonary abnormality is identified. There is no pneumothorax. The bony thorax is intact. IMPRESSION: No active cardiopulmonary disease. Reviewed, Interpreted and Dictated by Gonsalo Sawyer III, MD Transcribed by Sangeetha Chowdhury Authenticated and [facility]
--- NOTE | 2023-01-20 15:11 | PC.NURSE ---
Pt back from RAD
[2023-01-20 16:20] VITALS: BP 144/76; PULSE 70; RESP 18; TEMP 36.9; O2SAT 98
== END 2023-01-20 16:20 | disposition home or self-care (01) ==
PROVIDERS: Emergency Provider Nurse Practitioner Family; PCP Nurse Practitioner Family
DX: J20.9 Acute bronchitis, unspecified (principal); F17.210 Nicotine dependence, cigarettes, uncomplicated; I25.10 Atherosclerotic heart disease of native coronary artery without angina pectoris; I11.9 Hypertensive heart disease without heart failure; E11.9 Type 2 diabetes mellitus without complications; E78.5 Hyperlipidemia, unspecified; E03.9 Hypothyroidism, unspecified; Z79.84 Long term (current) use of oral hypoglycemic drugs
CPT/HCPCS: 71046; 87635; 96372; 99204; 99212; G0463; J0696

== ENCOUNTER 2023-07-25 18:00 | Outpatient (CLI) | payer MEDICARE, SELFPAY ==
[2023-07-25 18:35] LABS: Basophils # 0.1 K/mm3 (0-0.2); Basophils % 0.8 % (0.1-2.0); Eosinophils # 0.1 K/mm3 (0.0-0.4); Hematocrit 46.1 % (37.0-47.0); Hemoglobin 15.3 g/dL (12.2-16.2); Lymphocytes # 1.4 K/mm3 (0.7-4.5); Lymphocytes % 23.7 % (10-50); Mean Corpuscular HGB Conc 33.2 g/dL (31.8-35.4); Mean Corpuscular Hemoglobin 32.2 pg (27.0-31.2); Mean Corpuscular Volume 96.9 fl (81-99); Mean Platelet Volume 10.1 fl (7.4-10.4); Monocytes # 0.2 K/mm3 (0.1-1.0); Monocytes % 3.7 % (1.7-9.3); Neutrophils # 4.2 K/mm3 (1.8-7.8); Neutrophils % 69.8 % (37.0-80.0); Platelet Count 191 K/mm3 (142-424); Red Blood Count 4.76 M/mm3 (4.20-5.40); Red Cell Distribution Width 14.6 % (11.5-17.5); White Blood Count 6.1 K/mm3 (4.8-10.8)
[2023-07-25 19:00] LABS: Alanine Aminotransferase 23 U/L (12-78); Albumin Level 3.9 g/dl (3.5-5.0); Albumin/Globulin Ratio 1.4 (1.1-1.8); Alkaline Phosphatase 114 U/L (38-126); Amylase 47 U/L (30-110); Anion Gap 10.8 mEq/L (5-15); Aspartate Amino Transferase 24 U/L (14-36); Bilirubin,Total 0.8 mg/dl (0.2-1.3); Blood Urea Nitrogen 8 mg/dl (7-17); Calcium 9.3 mg/dl (8.4-10.2); Carbon Dioxide 22 mmol/L (22.0-30.0); Chloride 104 mmol/L (98-107); Chol/HDL Ratio 11.8 (1-3.5); Cholesterol 283 mg/dl (140-200); Estimated Glomerular Filt Rate 128 ml/min (>60); GFR (African American) 155 ML/MIN (>60); Globulin 2.8 g/dL (1.3-3.2); Glucose 386 mg/dl (74-100); HDL Cholesterol 24 mg/dl (40-60); Lipase 74 U/L (23-300); Potassium 3.8 mmoL/L (3.5-5.1); Sodium 133 mmol/L (136-145); Total Protein,Serum 6.7 g/dl (6.3-8.2)
[2023-07-25 19:09] LABS: 25-OH Vitamin D, Total 14.4 ng/mL (30-100)
[2023-07-25 19:10] LABS: Hemoglobin A1C 10.8 % (4.0-6.0)
[2023-07-25 19:58] LABS: Vitamin B12 629 pg/mL (239-931)
[2023-07-25 19:59] LABS: Direct LDL Cholesterol < 30.00 mg/dL (100-129)
[2023-07-25 20:10] LABS: Triglycerides 2490 mg/dl (30-150)
== END 2023-07-25 23:59 | disposition home or self-care (01) ==
LOC: LAB.DROPOF 07-26 09:13
PROVIDERS: PCP Student in an Organized Health Care Education/Training Program; Visit Provider Student in an Organized Health Care Education/Training Program
DX: E11.65 Type 2 diabetes mellitus with hyperglycemia (principal); E53.8 Deficiency of other specified B group vitamins; R10.11 Right upper quadrant pain; E55.9 Vitamin D deficiency, unspecified; E78.5 Hyperlipidemia, unspecified; E03.9 Hypothyroidism, unspecified; Z68.29 Body mass index [BMI] 29.0-29.9, adult; Z79.84 Long term (current) use of oral hypoglycemic drugs; Z79.85 Long-term (current) use of injectable non-insulin antidiabetic drugs
CPT/HCPCS: 80053; 80061; 82150; 82306; 82607; 83036; 83690; 84443; 85025

== ENCOUNTER 2023-07-29 14:55 | Outpatient (CLI) | payer MEDICARE, SELFPAY ==
--- NOTE | 2023-07-29 14:55 | MM_ITS ---
PROCEDURE INFORMATION: Exam: MG Bilateral Screening 3D Mammography Exam date and time: 07/29/2023 2:48 PM Age: 57 years old Clinical indication: Screening examination TECHNIQUE: Imaging protocol: Bilateral Screening tomosynthesis and 2D mammography including computer-aided detection (CAD) when performed. COMPARISON: 1. MG MM DIG SCREENING MAMM BI W/CAD 07/12/2022 10:59 AM 2. MG MAMMO DIAGNOSTIC DIGITAL TOMOSYNTHESIS RIGHT W CAD 01/05/2020 10:40 AM FINDINGS: MAMMOGRAPHY: Breast composition: There are scattered areas of fibroglandular density. Mass: None. Architectural distortion: None. Calcifications: No suspicious calcifications. Asymmetric density: None. Skin thickening: None. Axillary adenopathy: None. IMPRESSION: No mammographic evidence of malignancy. Annual screening is recommended unless otherwise clinically indicated. ASSESSMENT: BI-RADS Category 1: Negative
== END 2023-07-29 23:59 | disposition home or self-care (01) ==
LOC: RAD 14:55
PROVIDERS: PCP Student in an Organized Health Care Education/Training Program; Visit Provider Student in an Organized Health Care Education/Training Program
DX: Z12.31 Encounter for screening mammogram for malignant neoplasm of breast (principal)
CPT/HCPCS: 77063; 77067

== ENCOUNTER 2023-08-26 14:09 | Outpatient (CLI) | payer MEDICARE, SELFPAY ==
[2023-08-26 21:41] LABS: Creatinine,Urine Random 97 mg/dL (Not Estab.)
[2023-08-26 21:46] LABS: Microalbumin/Creatinine Ratio 18.7
[2023-08-26 21:54] LABS: Free Thyroxine Index 2.7 ug/dL (5.93-13.13); T4 (Thyroxine) 8.6 ug/dl (5.53-11.0); Triiodothryronine (T3) Uptake 31 % (23.5-40.5)
[2023-08-26 22:13] LABS: Hemoglobin A1C 11.6 % (4.0-6.0)
== END 2023-08-26 23:59 | disposition home or self-care (01) ==
LOC: LAB.DROPOF 08-27 14:09
PROVIDERS: PCP Student in an Organized Health Care Education/Training Program; Visit Provider Student in an Organized Health Care Education/Training Program
DX: E03.9 Hypothyroidism, unspecified (principal); E11.9 Type 2 diabetes mellitus without complications; Z79.84 Long term (current) use of oral hypoglycemic drugs; Z79.85 Long-term (current) use of injectable non-insulin antidiabetic drugs
CPT/HCPCS: 82043; 82570; 83036; 84436; 84443; 84479

== ENCOUNTER 2023-11-21 09:47 | Outpatient (CLI) | payer MEDICARE, SELFPAY ==
[2023-11-21 18:46] LABS: Basophils # 0.1 K/mm3 (0-0.2); Basophils % 1.1 % (0.1-2.0); Eosinophils # 0.1 K/mm3 (0.0-0.4); Eosinophils % 2.4 % (0.1-12.0); Hematocrit 47.4 % (37.0-47.0); Hemoglobin 15.8 g/dL (12.2-16.2); Lymphocytes # 1.6 K/mm3 (0.7-4.5); Lymphocytes % 26.4 % (10-50); Mean Corpuscular HGB Conc 33.3 g/dL (31.8-35.4); Mean Corpuscular Hemoglobin 31.1 pg (27.0-31.2); Mean Corpuscular Volume 93.3 fl (81-99); Mean Platelet Volume 9.7 fl (7.4-10.4); Monocytes # 0.2 K/mm3 (0.1-1.0); Monocytes % 3.4 % (1.7-9.3); Neutrophils % 66.7 % (37.0-80.0); Platelet Count 198 K/mm3 (142-424); Red Blood Count 5.08 M/mm3 (4.20-5.40); Red Cell Distribution Width 14.8 % (11.5-17.5); White Blood Count 5.9 K/mm3 (4.8-10.8)
[2023-11-21 19:16] LABS: Alanine Aminotransferase 34 U/L (12-78); Albumin Level 3.7 g/dl (3.5-5.0); Albumin/Globulin Ratio 1.1 (1.1-1.8); Alkaline Phosphatase 104 U/L (38-126); Amylase 48 U/L (30-110); Anion Gap 12.3 mEq/L (5-15); Aspartate Amino Transferase 28 U/L (14-36); Bilirubin,Total 0.7 mg/dl (0.2-1.3); Blood Urea Nitrogen 12 mg/dl (7-17); Calcium 9.1 mg/dl (8.4-10.2); Carbon Dioxide 18 mmol/L (22.0-30.0); Chloride 106 mmol/L (98-107); Estimated Glomerular Filt Rate 128 ml/min (>60); GFR (African American) 154 ML/MIN (>60); Globulin 3.4 g/dL (1.3-3.2); HDL Cholesterol 28 mg/dl (40-60); Lipase 82 U/L (23-300); Potassium 4.3 mmoL/L (3.5-5.1); Sodium 132 mmol/L (136-145); Total Protein,Serum 7.1 g/dl (6.3-8.2)
[2023-11-21 19:33] LABS: 25-OH Vitamin D, Total 28.1 ng/mL (30-100)
[2023-11-21 19:48] LABS: Thyroid Stimulating Hormone 0.96 uIU/mL (0.465-4.68)
[2023-11-21 20:05] LABS: Direct LDL Cholesterol < 30.00 mg/dL (100-129)
[2023-11-21 20:07] LABS: Chol/HDL Ratio 15.7 (1-3.5)
[2023-11-21 21:51] LABS: Glucose 433 mg/dl (74-100)
[2023-11-21 21:53] LABS: Cholesterol 439 mg/dl (140-200)
[2023-11-21 22:08] LABS: Triglycerides 3729 mg/dl (30-150)
== END 2023-11-21 23:59 | disposition home or self-care (01) ==
LOC: LAB.DROPOF 11-24 09:48
PROVIDERS: PCP Student in an Organized Health Care Education/Training Program; Visit Provider Student in an Organized Health Care Education/Training Program
DX: E11.9 Type 2 diabetes mellitus without complications (principal); R10.9 Unspecified abdominal pain; Z79.4 Long term (current) use of insulin; E03.9 Hypothyroidism, unspecified; E55.9 Vitamin D deficiency, unspecified
CPT/HCPCS: 80050; 80053; 80061; 82150; 82306; 83036; 83690; 84443; 85025

== ENCOUNTER 2024-05-12 15:06 | Outpatient (CLI) | payer MEDICARE, SELFPAY ==
--- NOTE | 2024-05-12 15:10 | CA_ITS ---
APPROVED REPORT EXAM: Comprehensive 2D, Doppler, and color-flow Echocardiogram Flag Football Coach: Jessica Zamudio CRT Ht: 5 ft 6 in Wt: 175lbs BSA: 1.89 BP: 127/4 mmHg Rhythm: 70 Indications: Abnormal ECG, Shortness of Breath, Diabetes, Atrial Flutter, CAD, Hyperlipidemia, Hypertension/HDD, smoker, 2 stents, teddy TDE limited u/s windows. 2D Dimensions LA Volume 53.40 mL LA Volume Index 28.25 mL/m2 (M/F) 16-34 M-Mode Dimensions RVDd 2.64 cm (0.9-2.6) LA Diam 3.30 cm (1.9-4.0) LVDd 5.00 cm (3.5-5.7) LVDs 3.01 cm (3.5-5.7) IVSd 1.00 cm (0.6-1.1) PWd 0.70 cm (0.6-1.1) EF (Teich) 70.10% FS 39.80% EDV (Teich) 118.20 mL TAPSE 2.22 (<1.7) ESV (Teich) 35.30 mL LV Diastology E Decel Time 207 (160-240 msec) E/A Ratio 0.97 MED A' 9.40 cm/s LAT A' 8.90 cm/s Aortic Valve AO Peak GR. 4.60 mmHg Mitral Valve MV A Velocity 67.0 (40-130 cm/s) E/A Ratio 0.97 Pulmonary Valve PV Peak Velocity 90.0 (50-150 cm/s) Tricuspid Valve TR P. Velocity 211.00 cm/s RAP Estimate 10.00 mmHg RVSP 27.90 mmHg Left Ventricle The left ventricle is normal size. The left ventricular systolic function is normal. The left ventricular ejection fraction is within the normal range. There is increased LV wall thickness. There is normal LV segmental wall motion. Transmitral Doppler flow pattern suggests impaired LV relaxation. LVEF is 60%. Right Ventricle The right ventricle is normal size. The right ventricular systolic function is normal. Atria The left atrium size is normal. The right atrium size is normal. There is no Doppler evidence of interatrial shunt. Aortic Valve The aortic valve is normal in structure. There is no aortic valvular stenosis. No aortic regurgitation is present. Mitral Valve The mitral valve is normal in structure. No evidence of mitral valve stenosis. Trace mitral regurgitation. Tricuspid Valve Tricuspid valve is grossly normal in structure and function. Trace tricuspid regurgitation. There is insufficient TR jet to estimate RVSP. Pulmonic Valve The pulmonary valve is normal in structure. Trace pulmonic regurgitation. Great Vessels The aortic root is normal in size. IVC is normal in size and collapses >50% with inspiration. Pericardium There is no pericardial effusion. Other Information Study Quality: Adequate Conclusion Normal biventricular systolic function. No significant valvular stenosis or regurgitation. Electronically signed by : Annie Cheema MD 05/13/2024 10:31:40
== END 2024-05-12 23:59 | disposition home or self-care (01) ==
LOC: RT 15:07
PROVIDERS: PCP Student in an Organized Health Care Education/Training Program; Visit Provider Internal Medicine
DX: I10 Essential (primary) hypertension (principal); I25.10 Atherosclerotic heart disease of native coronary artery without angina pectoris; Z95.5 Presence of coronary angioplasty implant and graft; R94.31 Abnormal electrocardiogram [ECG] [EKG]; I48.91 Unspecified atrial fibrillation; I48.92 Unspecified atrial flutter; E11.69 Type 2 diabetes mellitus with other specified complication; Z79.4 Long term (current) use of insulin; E78.1 Pure hyperglyceridemia
CPT/HCPCS: 93306

== ENCOUNTER 2024-05-31 16:25 | Outpatient (CLI) | payer MEDICARE, SELFPAY ==
[2024-05-31 20:36] LABS: Albumin Level 4.7 g/dl (3.5-5.0); Chloride 100 mmol/L (98-107); Potassium 4.6 mmoL/L (3.5-5.1); Sodium 135 mmol/L (136-145)
[2024-05-31 20:38] LABS: Blood Urea Nitrogen 7 mg/dl (7-17); Estimated Glomerular Filt Rate 103 ml/min (>60); GFR (African American) 125 ML/MIN (>60)
[2024-05-31 20:39] LABS: Alanine Aminotransferase 24 U/L (12-78); Albumin/Globulin Ratio 1.7 (1.1-1.8); Alkaline Phosphatase 93 U/L (38-126); Anion Gap 13.6 mEq/L (5-15); Aspartate Amino Transferase 24 U/L (14-36); Bilirubin,Total 0.7 mg/dl (0.2-1.3); Calcium 9.6 mg/dl (8.4-10.2); Carbon Dioxide 26 mmol/L (22.0-30.0); Chol/HDL Ratio 5.3 (1-3.5); Cholesterol 168 mg/dl (140-200); Globulin 2.7 g/dL (1.3-3.2); Glucose 298 mg/dl (74-100); HDL Cholesterol 32 mg/dl (40-60); Total Protein,Serum 7.4 g/dl (6.3-8.2)
[2024-05-31 20:51] LABS: Direct LDL Cholesterol 41.46 mg/dL (100-129)
[2024-05-31 20:59] LABS: Triglycerides 662 mg/dl (30-150)
[2024-05-31 21:11] LABS: Thyroid Stimulating Hormone 0.93 uIU/mL (0.465-4.68)
[2024-05-31 22:18] LABS: Hemoglobin A1C 10.9 % (4.0-6.0)
== END 2024-05-31 23:59 | disposition home or self-care (01) ==
LOC: LAB.DROPOF 06-01 09:28
PROVIDERS: PCP Family Medicine; Visit Provider Family Medicine
DX: E03.9 Hypothyroidism, unspecified (principal); Z86.39 Personal history of other endocrine, nutritional and metabolic disease
CPT/HCPCS: 80053; 80061; 83036; 84443

== ENCOUNTER 2024-08-02 15:35 | Outpatient (CLI) | payer MEDICARE, SELFPAY ==
--- NOTE | 2024-08-02 16:00 | MM_ITS ---
PROCEDURE INFORMATION: Exam: MG Bilateral Screening 3D Mammography Exam date and time: 08/02/2024 3:47 PM Age: 58 years old Clinical indication: Screening examination TECHNIQUE: Imaging protocol: Bilateral Screening tomosynthesis and 2D mammography including computer-aided detection (CAD) when performed. COMPARISON: 1. MG MM DIG SCREENING MAMM BI W/CAD 07/29/2023 2:48 PM 2. MG MM DIG SCREENING MAMM BI W/CAD 07/12/2022 10:59 AM FINDINGS: MAMMOGRAPHY: Breast composition: There are scattered areas of fibroglandular density. Mass: There is no new or suspicious mass. Architectural distortion: None. Stable biopsy tissue marker in the left breast. Calcifications: No suspicious calcifications. Asymmetric density: None. Skin thickening: None. Axillary adenopathy: None. IMPRESSION: No mammographic evidence of malignancy. Annual screening is recommended unless otherwise clinically indicated. ASSESSMENT: BI-RADS Category 2: Benign.
== END 2024-08-02 23:59 | disposition home or self-care (01) ==
LOC: RAD 15:36
PROVIDERS: PCP Family Medicine; Visit Provider Family Medicine
DX: Z12.31 Encounter for screening mammogram for malignant neoplasm of breast (principal); R92.323 Mammographic fibroglandular density, bilateral breasts; G47.33 Obstructive sleep apnea (adult) (pediatric); G47.36 Sleep related hypoventilation in conditions classified elsewhere
CPT/HCPCS: 77063; 77067; G0399

== ENCOUNTER 2024-08-31 07:00 | Day surgery (SDC) | payer MEDICARE, SELFPAY ==
[2024-08-30 14:48] VITALS: BMI 27.7
[2024-08-31] MEDS: TETRACAINE 0.5% OPTH SOL 15ML OP ×3 (07:22→07:24)
[2024-08-31] MEDS: PHENYLEPHRINE 2.5% OPHTH SOLN 2ML OP ×3 (07:22→07:24)
[2024-08-31] MEDS: CYCLOPENTOLATE 2% OPHTH SOLN 2ML BOTTLE OP ×3 (07:23→07:24)
[2024-08-31 07:27] VITALS: BP 135/69; PULSE 63; RESP 18; TEMP 36.3; O2SAT 95
[2024-08-31 07:35] LABS: POC Glucose,Bedside 357 (70-110)
[2024-08-31 08:49] VITALS: BP 145/76; PULSE 53; RESP 16; TEMP 36.6; O2SAT 95
[2024-08-31] MEDS: SODIUM CHLORIDE 0.9% 10ML FLUSH SYRINGE 10 ML IV (08:49)
[2024-08-31] MEDS: MIDAZOLAM 2MG/2ML VIAL 1 MG IV (08:49)
[2024-08-31 08:54] VITALS: BP 128/55; PULSE 55; RESP 16; TEMP 36.6; O2SAT 93
[2024-08-31] MEDS: LIDOCAINE 1% PF 2ML AMPULE 2 ML IJ (08:59)
[2024-08-31] MEDS: TIMOLOL 0.5% OPTH SOLN 5ML OP (08:59)
[2024-08-31] MEDS: TOBRAMYCIN/DEX OPTH SUSP 2.5ML OP (08:59)
[2024-08-31 09:04] VITALS: BP 136/80; PULSE 56; RESP 16; TEMP 36.6; O2SAT 94
[2024-08-31 09:11] VITALS: BP 118/69; PULSE 58; RESP 16; TEMP 36.2; O2SAT 97
--- NOTE | 2024-08-31 10:45 | HMH.PROCNOTE ---
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 The patient reports that this interferes with ADLs such as reading, watching TV and/or driving or the vision is like looking through a foggy haze and is very troubling. The patient was examined and found to have a visually significant cataract with best corrected vision of [20/CF 5ft] by refraction and/or glare testing. Treatment options, risks and benefits were explained and the patient elected to have cataract surgery in an attempt to improve their vision. The patient had the eye anesthetized with topical tetracaine, the eye ways prepped and draped in the usual fashion for cataract surgery. A paracentesis and a temporal keratotomy were made. 0.2cc of 1% lidocaine PF was placed into the anterior chamber. Vision blue was instilled into the anterior chamber to stain the capsule because the cataract was mature with a poor red reflex. This increased the saftey in performing the caposulorhexis. The vision blue was removed after 30 seconds with automated I&A. And aqueous/viscoelastic exchange was done and a 360 degree capsulorexis was performed. Thorough hydrodissection and delineation with BSS on a cannula was done. The lens nucleus was phecoemulsified with CDE of [11.13]. Residual cortical material was removed using automated I&A The capsular bag was deepened with viscoelastica and a PCIOL was placed in the capsular bag with good centration and stability. Residual viscoelastic was removed using automated I&A. The keratotomy incision was hydrated with BSS on a cannula. The wound were checked and found to be water tight. IOP was checked digitally and adjusted as needed so as not to be too high. 1 drop of timolol 0.5%, ofloxacin, prednisolone acetate and ketorolac was instilled and eye shield taped over the eye. The patient was taken to recovery in good condition and will be seen postoperatively.
== END 2024-08-31 09:30 | disposition home or self-care (01) ==
PROVIDERS: PCP Family Medicine; Visit Provider Ophthalmology
PROC: (CPT 66982; principal; 2024-08-31 08:30)
DX: E11.36 Type 2 diabetes mellitus with diabetic cataract (principal); H25.811 Combined forms of age-related cataract, right eye; E78.00 Pure hypercholesterolemia, unspecified; E03.9 Hypothyroidism, unspecified; F41.9 Anxiety disorder, unspecified; M19.90 Unspecified osteoarthritis, unspecified site; K21.9 Gastro-esophageal reflux disease without esophagitis; I48.92 Unspecified atrial flutter; I25.10 Atherosclerotic heart disease of native coronary artery without angina pectoris; I10 Essential (primary) hypertension; F17.210 Nicotine dependence, cigarettes, uncomplicated; E11.42 Type 2 diabetes mellitus with diabetic polyneuropathy; G47.33 Obstructive sleep apnea (adult) (pediatric); I48.0 Paroxysmal atrial fibrillation; H91.90 Unspecified hearing loss, unspecified ear; Z96.1 Presence of intraocular lens; Z97.3 Presence of spectacles and contact lenses; Z79.82 Long term (current) use of aspirin; Z79.02 Long term (current) use of antithrombotics/antiplatelets; Z79.84 Long term (current) use of oral hypoglycemic drugs; Z79.890 Hormone replacement therapy; Z79.01 Long term (current) use of anticoagulants; Z79.899 Other long term (current) drug therapy; Z83.3 Family history of diabetes mellitus; Z79.85 Long-term (current) use of injectable non-insulin antidiabetic drugs
CPT/HCPCS: 66982; 82962; J2250; V2632

== ENCOUNTER 2024-09-30 11:31 | Outpatient (CLI) | payer MEDICARE, SELFPAY ==
[2024-09-30 15:54] LABS: Albumin Level 4.2 g/dl (3.5-5.0); Chloride 104 mmol/L (98-107); Potassium 3.8 mmoL/L (3.5-5.1); Sodium 138 mmol/L (136-145)
[2024-09-30 15:57] LABS: Alanine Aminotransferase 22 U/L (12-78); Albumin/Globulin Ratio 1.6 (1.1-1.8); Alkaline Phosphatase 95 U/L (38-126); Anion Gap 13.8 mEq/L (5-15); Aspartate Amino Transferase 24 U/L (14-36); Bilirubin,Total 0.5 mg/dl (0.2-1.3); Blood Urea Nitrogen 6 mg/dl (7-17); Calcium 9.2 mg/dl (8.4-10.2); Carbon Dioxide 24 mmol/L (22.0-30.0); Cholesterol 147 mg/dl (140-200); Creatinine,Serum 0.50 mg/dl (0.52-1.04); Estimated Glomerular Filt Rate 127 ml/min (>60); GFR (African American) 154 ML/MIN (>60); Globulin 2.7 g/dL (1.3-3.2); Glucose 183 mg/dl (74-100); HDL Cholesterol 29 mg/dl (40-60); Total Protein,Serum 6.9 g/dl (6.3-8.2)
[2024-09-30 15:58] LABS: Triglycerides 492 mg/dl (30-150)
[2024-09-30 16:29] LABS: Thyroid Stimulating Hormone 2.18 uIU/mL (0.465-4.68)
[2024-09-30 18:54] LABS: Hemoglobin A1C 13.4 % (4.0-6.0)
== END 2024-09-30 23:59 | disposition home or self-care (01) ==
LOC: LAB.DROPOF 10-01 13:25
PROVIDERS: PCP Family Medicine; Visit Provider Family Medicine
DX: E78.2 Mixed hyperlipidemia (principal); E03.9 Hypothyroidism, unspecified; E11.69 Type 2 diabetes mellitus with other specified complication; Z79.4 Long term (current) use of insulin
CPT/HCPCS: 80053; 80061; 83036; 84443